=== PATIENT | female | born 1965 | race American Indian/Alaskan Native ===

== ENCOUNTER 2017-01-31 01:58 | Inpatient (IN) | payer OTHER, MEDICAID ==
[2017-01-31 03:17] LABS: Basophils % (Auto) 0.8 % (0.0-1.8); Hematocrit 35.1 % (30.3-42.9); Hemoglobin 11.7 gm/dl (10.1-14.3); Mean Corpuscular HGB Conc 33 % (30-34); Mean Corpuscular Hemoglobin 29 pg (28-32); Mean Corpuscular Volume 88 fl (79-97); Platelet Count 248 K/mm3 (140-440); Red Blood Count 3.99 M/mm3 (3.65-5.03); Red Cell Distribution Width 13.1 % (13.2-15.2); White Blood Count 6.5 K/mm3 (4.5-11.0)
[2017-01-31 03:33] LABS: Anion Gap 24 mmol/L; Blood Urea Nitrogen 14 mg/dL (7-17); Carbon Dioxide 19 mmol/L (22-30); Chloride 95.6 mmol/L (98-107); Glucose 340 mg/dL (65-100); Potassium 3.8 mmol/L (3.6-5.0); Sodium 135 mmol/L (137-145)
--- NOTE | 2017-01-31 06:23 | Emergency Department Report ---
ED Chest Pain HPI - General Chief Complaint: Dyspnea/Respdistress Stated Complaint: CHEST PAIN Time Seen by Provider: 01/31/17 06:22 Source: EMS Mode of arrival: Stretcher Limitations: No Limitations - History of Present Illness Initial Comments: The patient complains of intermittent nonpleuritic chest pain which does not radiate. He states that she was admitted for this before and a CT was done but no stress test. In [address] angiogram. She does have a history of pulmonary embolism in 2000. She states that she sees Dr. Lemons of [facility] for care. However she states that a heart problem has been yet diagnosed. She has multiple cardiac risk factors probably all with the exception of being a nonsmoker. She has never had a heart catheterization. Review of her prior admission does indicate that no stress was performed in 2016. The patient states that she does have associated symptoms with these episodes of chest pain which are poorly characterized otherwise. She answers to the affirmative regarding nausea and sweating and dyspnea. She denies vomiting or hemoptysis. She states that her leg is swollen. However on exam there is no evidence of that and she then states, "it went down". She denies stress or anxiety. MD Complaint: chest pain -: month(s) Onset: during rest Pain Location: left chest Pain Radiation: none Severity scale (0 -10): 10 Quality: other Consistency: intermittent, now resolved Improves With: nothing Worsens With: nothing re: nausea, dyspnea. denies: vomting Other Symptoms: denies: cough, fever, syncope Treatments Prior to Arrival: none Aspirin use within the Past 7 Days: (1) Yes - Related Data On Oral Contraceptives: No Home Medications Medication Instructions Recorded Confirmed Last Taken Metoprolol [Lopressor TAB] 25 mg PO BID 09/02/13 01/31/17 09/05/15 levETIRAcetam [Keppra TAB] 1,500 mg PO BID 09/02/13 01/31/17 09/05/15 Aspirin [Aspirin TAB] 81 mg PO QDAY 09/06/15 01/31/17 09/05/15 Fluticasone [Flonase] 1 spray NS QDAY 09/06/15 01/31/17 09/05/15 Gabapentin [Neurontin] 300 mg PO DAILY 09/06/15 01/31/17 09/05/15 Insulin Lispro [HumaLOG VIAL] 25 units SQ AC 09/06/15 01/31/17 09/05/15 Levothyroxine [Synthroid] 112 mcg PO QAM 09/06/15 01/31/17 09/05/15 Omeprazole [PriLOSEC] 40 mg PO QDAY 09/06/15 01/31/17 09/05/15 PARoxetine [Paxil] 30 mg PO DAILY 09/06/15 01/31/17 09/05/15 Simvastatin [Zocor TAB] 40 mg PO QHS 09/06/15 01/31/17 09/05/15 Insulin Degludec [Tresiba 90 unit SQ DAILY 07/07/16 01/31/17 Unknown Flextouch U-100] Olmesartan/Hydrochlorothiazide 1 tab PO QDAY 07/07/16 01/31/17 Unknown [Benicar HCT 40-25 mg] Symbicort 160-4.5 (Nf) 160 spray IH DAILY 07/07/16 01/31/17 Unknown Previous Rx's Medication Instructions Recorded Last Taken Type Benzonatate [Tessalon Perles] 100 mg PO Q8HR PRN #20 capsule 09/07/15 Unknown Rx Famotidine [Pepcid] 20 mg PO BID #60 tablet 09/07/15 Unknown Rx Meloxicam [Mobic] 7.5 mg PO QDAY #14 tablet 09/07/15 Unknown Rx Allergies Allergy/AdvReac Type Severity Reaction Status Date / Time No Known Allergies Allergy Verified 01/31/17 02:19 Heart Score - HEART Score History: Slightly suspicious EKG: Normal Age: 45-65 Risk factors: > 3 risk factors or hx of atherosclerotic disease Troponin: < normal limit HEART Score: 3 - Critical Actions Critical Actions: 0-3 pts:0.9-1.7%risk of adverse cardiac event.Candidate for discharge ED Review of Systems ROS: Stated complaint: CHEST PAIN Other details as noted in HPI Constitutional: denies: chills, fever Eyes: denies: eye pain, eye discharge, vision change ENT: denies: ear pain, throat pain Respiratory: shortness of breath. denies: cough, wheezing Cardiovascular: chest pain. denies: palpitations Endocrine: no symptoms reported Gastrointestinal: nausea. denies: abdominal pain, vomiting, diarrhea Genitourinary: denies: urgency, dysuria, discharge Musculoskeletal: denies: back pain, joint swelling, arthralgia Skin: denies: rash, lesions Neurological: denies: headache, weakness, paresthesias Psychiatric: denies: anxiety, depression Hematological/Lymphatic: denies: easy bleeding, easy bruising ED Past Medical Hx - Past Medical History Previous Medical History?: Yes Hx Hypertension: Yes Hx Heart Attack/AMI: No Hx Congestive Heart Failure: No Hx Diabetes: Yes Hx Deep Vein Thrombosis: Yes Hx Pulmonary Embolism: Yes (2000) Hx Liver Disease: No Hx Renal Disease: No Hx Sickle Cell Disease: No Hx Arthritis: No Hx Seizures: Yes Hx Kidney Stones: No Hx Asthma: Yes Hx COPD: No Hx Tuberculosis: No Hx Dementia: No Hx HIV: No Additional medical history: MVP. GLAUCOMA. GOUT. ANXIETY - Surgical History Past Surgical History?: Yes Hx Open Heart Surgery: No Hx Pacemaker: No Hx Internal Defibrillator: No Hx Cholecystectomy: No Hx Appendectomy: Yes Hx Breast Surgery: No - Social History Smoking Status: Never Smoker Substance Use Type: None - Medications Home Medications: Home Medications Medication Instructions Recorded Confirmed Last Taken Type Metoprolol [Lopressor TAB] 25 mg PO BID 09/02/13 01/31/17 09/05/15 History levETIRAcetam [Keppra TAB] 1,500 mg PO BID 09/02/13 01/31/17 09/05/15 History Aspirin [Aspirin TAB] 81 mg PO QDAY 09/06/15 01/31/17 09/05/15 History Fluticasone [Flonase] 1 spray NS QDAY 09/06/15 01/31/17 09/05/15 History Gabapentin [Neurontin] 300 mg PO DAILY 09/06/15 01/31/17 09/05/15 History Insulin Lispro [HumaLOG VIAL] 25 units SQ AC 09/06/15 01/31/17 09/05/15 History Levothyroxine [Synthroid] 112 mcg PO QAM 09/06/15 01/31/17 09/05/15 History Omeprazole [PriLOSEC] 40 mg PO QDAY 09/06/15 01/31/17 09/05/15 History PARoxetine [Paxil] 30 mg PO DAILY 09/06/15 01/31/17 09/05/15 History Simvastatin [Zocor TAB] 40 mg PO QHS 09/06/15 01/31/17 09/05/15 History Benzonatate [Tessalon Perles] 100 mg PO Q8HR PRN #20 capsule 09/07/15 01/31/17 Unknown Rx Famotidine [Pepcid] 20 mg PO BID #60 tablet 09/07/15 01/31/17 Unknown Rx Meloxicam [Mobic] 7.5 mg PO QDAY #14 tablet 09/07/15 01/31/17 Unknown Rx Insulin Degludec [Tresiba 90 unit SQ DAILY 07/07/16 01/31/17 Unknown History Flextouch U-100] Olmesartan/Hydrochlorothiazide 1 tab PO QDAY 07/07/16 01/31/17 Unknown History [Benicar HCT 40-25 mg] Symbicort 160-4.5 (Nf) 160 spray IH DAILY 07/07/16 01/31/17 Unknown History ED Physical Exam - General Limitations: No Limitations General appearance: anxious - Head Head exam: Present: atraumatic, normocephalic - Eye Eye exam: Present: normal appearance. Absent: scleral icterus - ENT ENT exam: Present: mucous membranes moist - Neck Neck exam: Present: normal inspection - Respiratory Respiratory exam: Present: normal lung sounds bilaterally. Absent: respiratory distress - Cardiovascular Cardiovascular Exam: Present: regular rate, normal rhythm. Absent: systolic murmur, diastolic murmur, rubs, gallop - GI/Abdominal GI/Abdominal exam: Present: soft, normal bowel sounds. Absent: distended, tenderness, guarding, rebound, rigid - Extremities Exam Extremities exam: Present: normal inspection, normal capillary refill. Absent: tenderness, pedal edema, joint swelling, calf tenderness - Back Exam Back exam: Present: normal inspection - Neurological Exam Neurological exam: Present: alert, oriented X3, CN II-XII intact. Absent: motor sensory deficit - Psychiatric Psychiatric exam: Present: normal affect, anxious (appears anxious despite denying this) - Skin Skin exam: Present: warm, dry, intact, normal color. Absent: rash ED Course Vital Signs 01/31/17 01/31/17 01/31/17 02:22 02:30 02:39 Temperature 98 F Pulse Rate 71 67 70 Respiratory 29 H 25 H 25 H Rate Blood Pressure 145/72 Blood Pressure 151/72 [Right] O2 Sat by Pulse 100 100 100 Oximetry 01/31/17 01/31/17 01/31/17 02:45 03:00 03:15 Temperature Pulse Rate 81 67 72 Respiratory 19 31 H 17 Rate Blood Pressure 145/72 153/80 153/80 Blood Pressure [Right] O2 Sat by Pulse 99 98 100 Oximetry 01/31/17 01/31/17 01/31/17 03:30 03:45 04:00 Temperature Pulse Rate 68 67 68 Respiratory 18 23 22 Rate Blood Pressure 143/78 143/78 147/73 Blood Pressure [Right] O2 Sat by Pulse 100 100 99 Oximetry 01/31/17 01/31/17 01/31/17 04:15 04:30 04:45 Temperature Pulse Rate 74 70 67 Respiratory 18 14 22 Rate Blood Pressure 147/73 134/66 134/66 Blood Pressure [Right] O2 Sat by Pulse 100 98 100 Oximetry 01/31/17 01/31/17 01/31/17 05:00 05:30 06:00 Temperature Pulse Rate 65 66 66 Respiratory 18 19 21 Rate Blood Pressure 138/78 136/68 148/81 Blood Pressure [Right] O2 Sat by Pulse 99 97 99 Oximetry 01/31/17 01/31/17 06:30 07:00 Temperature Pulse Rate 68 64 Respiratory 15 15 Rate Blood Pressure 133/77 133/72 Blood Pressure [Right] O2 Sat by Pulse 100 98 Oximetry - Reevaluation(s) Reevaluation #1: The patient admitted by Dr. Hackett to the hospitalist service for further care and evaluation in stable condition 01/31/17 08:26 QUE score - Que Score Age > 65: (0) No Aspirin use within the Past 7 Days: (1) Yes 3 or more CAD Risk Factors: (1) Yes 2 or more Angina events in past 24 hrs: (1) Yes Known CAD with more than 50% Stenosis: (0) No Elevated Cardiac Markers: (0) No ST Deviation Greater than 0.5mm: (0) No QUE Score: 3 ED Medical Decision Making - Lab Data Result diagrams: 01/31/17 02:58 01/31/17 02:58 Laboratory Results - last 24 hr 01/31/17 01/31/17 02:58 02:58 WBC 6.5 RBC 3.99 Hgb 11.7 Hct 35.1 MCV 88 MCH 29 MCHC 33 RDW 13.1 L Plt Count 248 Lymph % (Auto) 19.6 Harnett % (Auto) 6.1 Eos % (Auto) 1.0 Baso % (Auto) 0.8 Lymph # 1.3 Harnett # 0.4 Eos # 0.1 Baso # 0.1 Seg Neutrophils % 72.5 H Seg Neutrophils # 4.7 Sodium 135 L Potassium 3.8 Chloride 95.6 L Carbon Dioxide 19 L Anion Gap 24 BUN 14 Creatinine 0.8 Estimated GFR > 60 BUN/Creatinine Ratio 17.50 Glucose 340 H Calcium 9.0 Troponin T < 0.010 - EKG Data -: EKG Interpreted by Me EKG shows normal: sinus rhythm, axis, intervals, QRS complexes, ST-T waves Rate: normal - EKG Data Interpretation: other (I disagree with the computer interpretation of cannot rule out anterior infarct. This is probably decreased R wave progression secondary to body habitus. It is nondiagnostic of an old infarct) - Radiology Data Radiology results: pending Critical care attestation.: If time is entered above; I have spent that time in minutes in the direct care of this critically ill patient, excluding procedure time. ED Disposition Clinical Impression: Chest pain Qualifiers: Chest pain type: unspecified Qualified Code(s): R07.9 - Chest pain, unspecified Diabetes mellitus, type 2 Qualifiers: Diabetes mellitus complication status: without complication Diabetes mellitus buttermilk drier operator insulin use: with buttermilk drier operator use Qualified Code(s): E11.9 - Type 2 diabetes mellitus without complications; Z79.4 - half-way (current) use of insulin Disposition: 09 OP ADMIT IP TO THIS HOSP Is pt being admited?: Yes Does the pt Need Aspirin: Yes Condition: Stable Instructions: Chest Pain (ED), Diabetes Mellitus Type 2 in Adults (ED) Referrals: PRIMARY CARE, [Primary Care Provider] - 3-5 Days Time of Disposition: 08:29
[2017-01-31] MEDS ORDERED: BABY ASPIRIN PO ONE (08:30)
[2017-01-31] MEDS ORDERED: TESSALON PERLES PO PRN (08:40)
--- NOTE | 2017-01-31 08:49 | History and Physical Report ---
History of Present Illness Date of examination: 01/31/17 Date of admission: 01/31/17 Chief complaint: Chest pain History of present illness: The patient is a 51 y/o female presented with nonpleuritic chest pain located retrosternally, without radiation, associated with nausea and diaphoresis for one week but just got worse since last night. She denies any SOB. Her pain is sharp in nature, 8/10 in intensity. She had a 2d echo early this year showing EF of 60-65%. Stress test was obtained on 2015 was normal. Her troponine so far negative with nonspecific T wave changes. She will be admitted for further evaluation. Past medical History: h/o HTN, HLD, seizure disorder, hypothyroidism, Past surgical History: s/p appendectomy Social History: Lives with family, denies any smoking, drinking and elicit drug abuse. Family History: Significant for heart disease in parents. Review of System: Constitutional: no fever, no chills, no weight loss Ears, eyes, nose, mouth and throat: no nasal congestion, no nasal discharge, no sinus pressure, no vision change, no red eye. Neck: No neck pain or rigidity. Cardiovascular: + chest pain, no orthopnea, no palpitations, no leg swelling Respiratory: No shortness of breath, no cough, no congestion, no wheezing Gastrointestinal: no abdominal pain, no nausea, no vomiting Genitourinary : no dysuria, no hematuria Musculoskeletal: no joint swelling or muscle ache Integumentary: no rash, no pruritis Neurological: no parathesias, no numbness, no tingling Endocrine: no cold or heat intolerance, no polyuria or polydipsia Hematologic/Lymphatic: no easy bruising, no easy bleeding, no gland swelling Allergic/Immunologic: no urticaria, no angioedema. Medications and Allergies Allergies Allergy/AdvReac Type Severity Reaction Status Date / Time No Known Allergies Allergy Verified 01/31/17 02:19 Home Medications Medication Instructions Recorded Confirmed Last Taken Type Metoprolol [Lopressor TAB] 25 mg PO BID 09/02/13 01/31/17 09/05/15 History levETIRAcetam [Keppra TAB] 1,500 mg PO BID 09/02/13 01/31/17 09/05/15 History Aspirin [Aspirin TAB] 81 mg PO QDAY 09/06/15 01/31/17 09/05/15 History Fluticasone [Flonase] 1 spray NS QDAY 09/06/15 01/31/17 09/05/15 History Gabapentin [Neurontin] 300 mg PO DAILY 09/06/15 01/31/17 09/05/15 History Insulin Lispro [HumaLOG VIAL] 25 units SQ AC 09/06/15 01/31/17 09/05/15 History Levothyroxine [Synthroid] 112 mcg PO QAM 09/06/15 01/31/17 09/05/15 History Omeprazole [PriLOSEC] 40 mg PO QDAY 09/06/15 01/31/17 09/05/15 History PARoxetine [Paxil] 30 mg PO DAILY 09/06/15 01/31/17 09/05/15 History Simvastatin [Zocor TAB] 40 mg PO QHS 09/06/15 01/31/17 09/05/15 History Benzonatate [Tessalon Perles] 100 mg PO Q8HR PRN #20 capsule 09/07/15 01/31/17 Unknown Rx Famotidine [Pepcid] 20 mg PO BID #60 tablet 09/07/15 01/31/17 Unknown Rx Meloxicam [Mobic] 7.5 mg PO QDAY #14 tablet 09/07/15 01/31/17 Unknown Rx Insulin Degludec [Tresiba 90 unit SQ DAILY 07/07/16 01/31/17 Unknown History Flextouch U-100] Olmesartan/Hydrochlorothiazide 1 tab PO QDAY 07/07/16 01/31/17 Unknown History [Benicar HCT 40-25 mg] Symbicort 160-4.5 (Nf) 160 spray IH DAILY 07/07/16 01/31/17 Unknown History Active Meds: Active Medications Aspirin (Aspirin) 81 mg PO QDAY KRISH Benzonatate (Tessalon Perles) 100 mg PO Q8HR PRN PRN Reason: Cough Famotidine (Pepcid) 20 mg PO BID KRISH Fluticasone Propionate (Flonase) mcg NS QDAY KRISH Gabapentin (Neurontin) 300 mg PO DAILY KRISH Levothyroxine Sodium (Synthroid) 112 mcg PO QAM KRISH Metoprolol Tartrate (Lopressor) 25 mg PO BID KRISH Miscellaneous Medication (Insulin Degludec [Tresiba Flextouch U-100]) 90 unit SQ DAILY KRISH Miscellaneous Medication (Insulin Lispro [Humalog Vial]) 25 units SQ AC KRISH Miscellaneous Medication (Levetiracetam [Keppra Tab]) 1,500 mg PO BID KRISH Miscellaneous Medication (Olmesartan/Hydrochlorothiazide [Benicar Hct 40-25 Mg] ) 1 tab PO QDAY KRISH Miscellaneous Medication (Omeprazole [Prilosec]) 40 mg PO QDAY KRISH Miscellaneous Medication (Symbicort 160-4.5 (Nf)) 160 spray IH DAILY KRISH Paroxetine HCl (Paxil) 30 mg PO DAILY KRISH Simvastatin (Zocor) 40 mg PO QHS KRISH Exam - Physical Exam Narrative exam: GENERAL: This is well-developed obese -Cypriot female lying on bed appeared to be in no discomfort. HEENT: Normocephalic. Atraumatic. Extraocular motions are intact. No conjunctival congestion or icterus. Patient has moist mucous membranes. External auditory canal and nares patent bilaterally. NECK: Supple. Trachea midline. No JVD, thyromagaly or lymphadenopathy. CHEST/LUNGS: Clear to auscultated bilaterally. There is no respiratory distress noted, breathing nonlabored. No wheezes crackles or rhonchi. HEART/CARDIOVASCULAR: Regular in rate and rhythm. PMI at the apex. There is no gallop rub or murmur. ABDOMEN: Abdomen is soft, nontender. Patient has normal bowel sounds. There is no abdominal distention. No organomagaly or rigidity. SKIN: There is no rash, no erythrema. There is no diaphoresis. Warm and dry. NEUROLOGY: The patient is awake, alert, and oriented. The patient is cooperative. The patient has normal speech. No focal motor deficit. MUSCULOSKELETAL: No joint effusion or tenderness. Muscle strength equal bilaterally. No muscle wasting. EXTRIMITY: No edema, cyanosis or clubbing. PSYCH: No depression or anxiety noted. Cooperative. - Constitutional Vitals: Temp Pulse Resp BP Pulse Ox 98 F 64 10 L 135/71 99 01/31/17 02:39 01/31/17 07:00 01/31/17 08:00 01/31/17 08:00 01/31/17 08:00 Results - Labs CBC & Chem 7: 01/31/17 02:58 01/31/17 02:58 Labs: Abnormal lab results 01/31/17 01/31/17 Range/Units 02:58 02:58 RDW 13.1 L (13.2-15.2) % Seg Neutrophils % 72.5 H (40.0-70.0) % Sodium 135 L (137-145) mmol/L Chloride 95.6 L (98-107) mmol/L Carbon Dioxide 19 L (22-30) mmol/L Glucose 340 H (65-100) mg/dL - Imaging and Cardiology Chest x-ray: report reviewed Assessment and Plan Acute chest pain - will admit to telemetry bed - monitor with serial CE and EKG - will place on Aspirin, statin - as needed SL NTG and iv morphin for pain - order stress test in the am - Patient had a recent echo on July this year which showed normal ejection fraction - cardiac diet now, NPO after midnight - provide DVT Px with lovenox Hypertension - Monitor BP, continue home meds Diabetes mellitus type 2 - Continue home regimen of insulin Hypothyroidism - Continue Synthroid - We will check TSH level Seizure disorder - Continue Keppra DVT prophylaxis - Lovenox
--- NOTE | 2017-01-31 09:54 | XRay Report ---
AP CHEST: HISTORY: Hypertension AP view of the chest demonstrates a normal mediastinal and cardiac contour with clear lungs and normal bony and soft tissue structures. IMPRESSION: Unremarkable AP chest.
[2017-01-31] MEDS ORDERED: NON-FORMULARY (Levetiracetam [Keppra Tab] 1,500 MG) PO SCH (10:00)
[2017-01-31] MEDS ORDERED: SYMBICORT IH SCH (10:00)
[2017-01-31] MEDS ORDERED: NON-FORMULARY (Omeprazole [Prilosec] 40 MG) PO SCH (10:00)
[2017-01-31] MEDS ORDERED: LEVEMIR SUB-Q SCH ×2 (10:00→16:17)
[2017-01-31] MEDS ORDERED: FLONASE NS SCH (10:00)
[2017-01-31] MEDS ORDERED: SYNTHROID PO SCH (10:00)
[2017-01-31] MEDS ORDERED: OLMESARTAN PO SCH (10:00)
[2017-01-31] MEDS ORDERED: INSULIN DEGLUDEC 90 UNIT SQ SCH (10:00)
[2017-01-31] MEDS ORDERED: HYDROCHLOROTHIAZIDE PO SCH (10:00)
[2017-01-31] MEDS: ASPIRIN PO SCH (10:22)
[2017-01-31] MEDS ORDERED: INSULIN LISPRO 25 UNIT SQ SCH (11:30)
[2017-01-31] MEDS: LOPRESSOR PO SCH ×2 (12:00→21:48)
[2017-01-31] MEDS: COZAAR PO SCH (12:00)
[2017-01-31] MEDS: KEPPRA PO SCH ×2 (12:00→21:47)
[2017-01-31] MEDS: PEPCID PO SCH ×2 (12:00→21:47)
[2017-01-31] MEDS: HCTZ PO SCH (12:00)
[2017-01-31] MEDS: NEURONTIN PO SCH (12:00)
[2017-01-31] MEDS: PROTONIX PO SCH (12:00)
[2017-01-31] MEDS: NOVOLOG SUB-Q SCH ×2 (13:30→19:00)
[2017-01-31] MEDS: PAXIL PO SCH (15:43)
[2017-01-31] MEDS: SYNTHROID PO SCH (15:43)
[2017-01-31] MEDS ORDERED: ZOCOR PO SCH (22:00)
--- NOTE | 2017-02-01 02:51 | Admit Criteria Form ---
Admission Criteria Documentation: CARDIOLOGY GRG Clinical Indications for Admission to Inpatient Care ( Place 'X' for any and all applicable criteria): Hospital admission is needed for appropriate care of the patient because of ANY ONE of the following (1): [ ] I. Hemodynamic instability as indicated by ALL of the following (1)(2)(3) (4)(5) [ ]a) Vital signs or other findings not as expected for chronic patient condition or baseline [ ]b) Instability indicated by ANY ONE of the following: [ ]i) Hypotension [ ]ii) Symptomatic Tachycardia unresponsive to treatment ( e.g., analgesia, fluids, sedation as indicated) [ ]iii) Inadequate perfusion indicated by ANY ONE of the following: [ ] 1) Lactic acidosis (> 2 mmol/L) [ ] 2) New abnormal capillary refill (> 3 seconds) [ ] 3) Reduced urine output [ ] 4) New altered mental status [ ]iv) Orthostatic vital sign changes unresponsive to treatment (e.g., fluids) [ ]v) IV inotropic or vasopressor medication required to maintain adequate blood pressure or perfusion [ ] II. Severe heart failure as indicated by ANY ONE of the following(17)(18) [ ]a) Respiratory distress [ ]b) Hypotension [ ]c) Anasarca (refractory to outpatient therapy) [ ]d) Cardiac arrhythmias of immediate concern [ ]e) Myocardial ischemia [ ] III. Cardiac arrhythmias or findings of immediate concern indicated by ANY ONE of the following (19)(20): [ ] a) Heart rhythms that are inherently dangerous or unstable indicated by ANY ONE of the following (21)(22)(23): [ ] i) Resuscitated ventricular fibrillation or cardiac arrest [ ] ii) Ventricular escape rhythm [ ] iii) Sustained ventricular tachycardia (30 seconds or more of ventricular rhythm at greater than 100 beats per minute) [ ] iv) Nonsustained ventricular tachycardia and ANY ONE of the following: [ ] 1) Suspected cardiac ischemia as cause or consequence of ventricular tachycardia [ ] 2) In setting of acute myocarditis [ ] b) Unstable cardiac conduction defects indicated by ANY ONE of the following(23)(24)(25) [ ] i) Type II second-degree atrioventricular block [ ]ii) Third-degree atrioventricular block [ ]iii) New-onset left bundle branch block with suspected myocardial ischemia [ ]c) Any heart rhythm and ANY ONE of the following (21)(22)(26)(27) (28) [ ] i) Continuous long-term ECG monitoring needed (e.g., initiation of drug requiring monitoring for more than 24 hours) [ ] ii) Patient has automatic implanted cardioverter defibrillator that is repeatedly firing, malfunctioning, or in need of immediate adjustment of settings beyond the scope of ambulatory or observation care [ ]d) Heart rhythms of concern due to ANY ONE of the following: [ ] i) Hypotension [ ] ii) Respiratory distress [ ] iii) Association with other significant symptoms (e.g., bradycardia with syncope or ongoing dizziness, supraventricular tachycardia with chest pain (14)(15)(17) [ ] IV. Monitoring for cardiac contusion beyond the scope of observation care needed [A](30)(31)(32) [ ] V. Surgical or device complication (e.g., valve replacement complication , pacemaker dysfunction) (35)(41)(44)(45)(46) [ ] . Inpatient palliative care needed. [B](49) Also use Inpatient Palliative Care Criteria [ ] VII. Nonbacterial thrombotic (marantic) endocarditis (36)(43)(47)(48) [ X] VIII. Cardiology condition, symptom, or finding for which emergency and observation care has failed or are not considered appropriate. [ ] IX. Acute valvular disease requiring inpatient as indicated by ANY ONE of the following (41) [ ]a) Acute valvular regurgitation (42) [ ]b) Noninfectious valvulitis (43) [ ]c) Obstructive valve thrombosis [ ]d) Paravalvular leak [ ]e) Other significant valvular disorder remaining after emergency or observation level of care (as appropriate) [ ]X. Pericardial disease requiring inpatient treatment as indicated by ANY ONE of the following (33)(34)(35)(36)(37) [ ]a) Suspected tamponade (38)(39)(40) [ ]b) Hemopericardium [ ]c) Other significant pericardial disorder remaining after emergency or observation level of care (as appropriate) [ ] XI. Cardiac ischemia beyond scope of emergency and observation care. [ ] XII. Hypertension requiring inpatient treatment as indicated by ANY ONE of the following (6)(7)(8) [ ]a) SBP greater than 220 mm Hg or DBP greater than 120 mmHg despite treatment [ ]b) SBP greater than 140 mm Hg or DBP greater than 100 mm Hg with evidence of acute end organ damage as indicated by ANY ONE of the following [ ] i) Altered mental status [ ] ii) Acute renal failure as indicated by new onset of ANY ONE of the following (9)(10)(11)(12)(13) [ ]1) 3-fold rise in serum creatinine from baseline [ ]2) Serum creatinine greater than 4 mg/dL ( 354 micromoles/L) with acute rise greater than 0.5 mg/dL (44.2 micromoles/L) [ ]3) Reduction of more than 75% in estimated glomerular filtration rate from baseline [ ]4) Estimated glomerular filtration rate less than 35 mL/min/1.73m2 (0.59 mL/sec/1.73m2) in child up to 18 years of age [ ]5) Cessation of urine output indicated by ALL of the following [ ]A. Adequate volume status [ ]B. Inadequate urine output as indicated by ANY ONE of the following [ ]a. Urine output less than 0.3 mL/kg/hr for 24 hours [ ]b. Anuria (urine output less than 0.1 mL/kg/hr) for 12 hours [ ] iii) Aortic dissection [ ] iv) Myocardial Ischemia [ ] v) Left ventricular heart failure [ ]vi) Retinal Hemorrhage [ ]vii) Other significant finding [ ]c) Hypertension in child requiring inpatient treatment as indicated by ALL of the following(14)(15)(16) [ ] i) Outpatient treatment not effective, not available, or not appropriate [ ]ii) SBP or DBP greater than 95th percentile for age [ ]iii) Evidence of acute end organ damage as indicated by ANY ONE of the following [ ]1) Altered mental status [ ]2) Acute renal failure as indicated by new onset of ANY ONE of the following(9)(10)(11)(12)(13) [ ]A. 3-fold rise in serum creatinine from baseline [ ]B. Serum creatinine greater than 4 mg/dL (354 micromoles/L) with acute rise greater than 0.5 mg/dL (44.2 micromoles/L) [ ]C. Reduction of more than 75% in estimated glomerular filtration rate from baseline [ ]D. Estimated glomerular filtration rate less than 35 mL/min/1.73m2 (0.59 mL/sec/1.73m2) in child up to 18 years of age [ ]E. Cessation of urine output indicated by ALL of the following [ ]a. Adequate volume status [ ]b. Inadequate urine output as indicated by ANY ONE of the following [ ]i) Urine output less than 0.3 mL/kg/hr for 24 hours [ ]ii) Anuria ( urine output less than 0.1 mL/kg/hr) for 12 hours [ ]3) Severe headache [ ]4) Visual disturbance [ ]5) Retinal hemorrhage [ ]6) Other significant finding [ ]XIII. Complications of transplanted heart indicated by ANY ONE of the following(61): [ ]a) Acute graft rejection requiring inpatient management (eg, intravenous immunosuppression)(62)(63) [ ]b) Acute graft heart failure indicated by ANY ONE of the following(64): [ ]i) Hemodynamic instability [ ]ii) Cardiac arrhythmias of immediate concern [ ]iii) Pulmonary edema that is very severe (eg, mechanical ventilation needed, imminent or likely, need for 100% oxygen to keep oxygen saturation above 90%) [ ]iv) Pulmonary edema that is persistent as indicated by ALL of the following: [ ]1) New need for oxygen therapy to keep oxygen saturation above 90% (or increased FiO2 need from baseline) [ ]2) Has not improved sufficiently with emergency department or observation care IV diuretics or other heart failure treatments[E] [ ]v) Altered mental status that is severe or persistent [ ]vi) Increased creatinine (new on laboratory test) with reduction of more than 50% in estimated glomerular filtration rate from baseline [ ]vii) Progressively (ongoing) rising creatinine (known from past laboratory test) with reduction of more than 25% in estimated glomerular filtration rate from baseline [ ]viii) Acute renal failure [ ]ix) Acute peripheral ischemia (eg, examination shows pulseless, cool, mottled, or cyanotic extremity) [ ]x) Pulmonary artery catheter monitoring needed [ ]xi) Other sign or symptom of heart failure requiring inpatient treatment (ie, too severe or not responsive to outpatient and observation care treatment) [ ]c) Infection requiring inpatient management (eg, Hemodynamic instability, need for intravenous antimicrobial treatment)(66)(67)(68)(69)(70) [ ]d) Cardiac allograft vasculopathy requiring inpatient management ( eg evidence of cardiac ischemia)(71) [ ]e) Other complication of transplanted heart (eg, stroke, severe pulmonary hypertension, severe valvular dysfunction) requiring inpatient management(72) The original [facility] [employer] content created by [facility] has been revised. The portions of the content which have been revised are identified through the use of italic text or in bold, and [facility] has neither reviewed nor approved the modified material. All other unmodified content is copyright [facility] [employer]. Please see references footnoted in the original [facility] [employer] edition 2016 Admission Criteria Met: Yes
[2017-02-01] MEDS: SYNTHROID PO SCH (06:22)
[2017-02-01] MEDS ORDERED: LEXISCAN IV ONE (08:01)
[2017-02-01] MEDS: KEPPRA PO SCH (12:46)
[2017-02-01] MEDS: NEURONTIN PO SCH (12:46)
[2017-02-01] MEDS: COZAAR PO SCH (12:48)
[2017-02-01] MEDS: ASPIRIN PO SCH (12:48)
[2017-02-01] MEDS: HCTZ PO SCH (12:49)
[2017-02-01] MEDS: PROTONIX PO SCH (12:49)
[2017-02-01] MEDS: PEPCID PO SCH (12:49)
[2017-02-01] MEDS: PAXIL PO SCH (12:50)
[2017-02-01] MEDS: LOPRESSOR PO SCH (12:50)
--- NOTE | 2017-02-01 13:35 | Discharge Summary ---
Providers - Providers Date of Admission: 01/31/17 11:32 Date of discharge: 02/01/17 Attending physician: ISAURO BASURTO MD Primary care physician: DARIUS CARRINGTON MD Hospitalization Condition: Stable Hospital course: discharge diagnosis: Acute chest pain likely from GERD Hypertension - Monitor BP, continue home meds Diabetes mellitus type 2 - Continue home regimen of insulin Hypothyroidism - Continue Synthroid - We will check TSH level Seizure disorder - Continue Keppra Disposition: DC-01 TO HOME OR SELFCARE Time spent for discharge: 32 minutes Core Measure Documentation - Palliative Care Palliative Care/ Comfort Measures: Not Applicable - Core Measures Any of the following diagnoses?: none Exam - Physical Exam Narrative exam: GENERAL: This is well-developed obese -[place] female lying on bed appeared to be in no discomfort. HEENT: Normocephalic. Atraumatic. Extraocular motions are intact. No conjunctival congestion or icterus. Patient has moist mucous membranes. External auditory canal and nares patent bilaterally. NECK: Supple. Trachea midline. No JVD, thyromagaly or lymphadenopathy. CHEST/LUNGS: Clear to auscultated bilaterally. There is no respiratory distress noted, breathing nonlabored. No wheezes crackles or rhonchi. HEART/CARDIOVASCULAR: Regular in rate and rhythm. PMI at the apex. There is no gallop rub or murmur. ABDOMEN: Abdomen is soft, nontender. Patient has normal bowel sounds. There is no abdominal distention. No organomagaly or rigidity. SKIN: There is no rash, no erythrema. There is no diaphoresis. Warm and dry. NEUROLOGY: The patient is awake, alert, and oriented. The patient is cooperative. The patient has normal speech. No focal motor deficit. MUSCULOSKELETAL: No joint effusion or tenderness. Muscle strength equal bilaterally. No muscle wasting. EXTRIMITY: No edema, cyanosis or clubbing. PSYCH: No depression or anxiety noted. Cooperative. - Constitutional Vitals: Temp Pulse Resp BP Pulse Ox 99.0 F 65 18 109/58 97 02/01/17 12:25 02/01/17 12:25 02/01/17 12:25 02/01/17 12:25 02/01/17 12:25 Plan Activity: advance as tolerated Weight Bearing Status: Weight Bear as Tolerated Diet: diabetic Follow up with: PRIMARY MD CHARISSA [Primary Care Provider] - 3-5 Days Prescriptions: Pantoprazole [Protonix TAB] 40 mg PO DAILY #30 tablet
[2017-02-01] MEDS ORDERED: TYLENOL PO PRN (14:01)
[2017-02-01] MEDS ORDERED: NORCO 5/325 PO PRN (14:01)
[2017-02-01] MEDS: BROVANA NEBU IH SCH ×4 (14:27→20:29)
[2017-02-01] MEDS: PULMICORT IH SCH ×4 (14:31→20:29)
[2017-02-01 21:20] VITALS: BP 123/75
--- NOTE | 2017-02-02 04:50 | Treadmill Report ---
THALLIUM STRESS TEST LEFT VENTRICLE: Left ventricular chamber size is within normal limits. Perfusion study demonstrates normal apical thinning, otherwise homogeneous uptake of the tracer in all segments, no significant perfusion defects identified. Gated analysis demonstrates normal left ventricular systolic function, ejection fraction of 68%. CONCLUSION: Normal myocardial perfusion study. JOB# [id number] CA/NTS
== END 2017-02-01 20:20 | disposition home or self-care (01) | DRG 392 ==
LOC: ED 01:58 → 4A 11:32
PROVIDERS: ADMIT Internal Medicine; ATTEND Internal Medicine
DX: K21.9 Gastro-esophageal reflux disease without esophagitis (principal); E11.9 Type 2 diabetes mellitus without complications; I10 Essential (primary) hypertension; J45.909 Unspecified asthma, uncomplicated; H40.9 Unspecified glaucoma; M10.9 Gout, unspecified; F41.9 Anxiety disorder, unspecified; G40.909 Epilepsy, unspecified, not intractable, without status epilepticus; E03.9 Hypothyroidism, unspecified; E78.5 Hyperlipidemia, unspecified; Z90.49 Acquired absence of other specified parts of digestive tract; Z86.711 Personal history of pulmonary embolism; Z79.01 Long term (current) use of anticoagulants; Z79.82 Long term (current) use of aspirin; Z79.4 Long term (current) use of insulin; Z86.718 Personal history of other venous thrombosis and embolism; Z82.49 Family history of ischemic heart disease and other diseases of the circulatory system
CPT/HCPCS: 36415; 71010; 78452; 80048; 82962; 84484; 85025; 93005; 93010; 93017; A9502; J1815; J1818; J2785

== ENCOUNTER 2018-01-09 03:28 | Observation (INO) | payer MEDICAID, OTHER ==
[2018-01-09] MEDS ORDERED: MORPHINE IV ONE ×2 (04:04→22:40)
[2018-01-09] MEDS ORDERED: NITRO-BID 2% TP ONE (04:15)
[2018-01-09] MEDS ORDERED: ZOFRAN IV ONE (04:15)
--- NOTE | 2018-01-09 04:19 | XRay Report ---
FINAL REPORT EXAM: XR CHEST 1V AP HISTORY: Chest Pain TECHNIQUE: A portable upright view the chest was obtained and compared to the study of 09/06/2015. FINDINGS: Heart size and mediastinum appear normal. There are no localized infiltrates. The lungs are not overtly congested. Pleural fluid is not seen. The bones and soft tissues do not show any acute changes. IMPRESSION: No active chest disease.
--- NOTE | 2018-01-09 04:33 | Emergency Department Report ---
ED Chest Pain HPI - General Chief Complaint: Chest Pain Stated Complaint: CHEST PAIN Time Seen by Provider: 01/09/18 03:49 Source: patient Mode of arrival: Ambulatory Limitations: No Limitations - History of Present Illness Initial Comments: Mrs. Okeefe has hx of UT, CVA, HTN, DM and dysplipidemia. No hx of PCI. Last cardiac cath ?2004 ?2005 Followed by Sindy Lerner MD Complaint: chest pain -: Gradual, week(s) (2) Onset: during rest Pain Location: substernal, left chest Pain Radiation: LUE Severity: severe Severity scale (0 -10): 8 Quality: tightness, sharp Consistency: constant Improves With: nitroglycerin Treatments Prior to Arrival: aspirin, nitroglycerin - Related Data Home Medications Medication Instructions Recorded Confirmed Last Taken Metoprolol [Lopressor TAB] 25 mg PO BID 09/02/13 01/31/17 09/05/15 levETIRAcetam [Keppra TAB] 1,500 mg PO BID 09/02/13 01/31/17 09/05/15 Aspirin [Aspirin TAB] 81 mg PO QDAY 09/06/15 01/31/17 09/05/15 Fluticasone [Flonase] 1 spray NS QDAY 09/06/15 01/31/17 09/05/15 Gabapentin [Neurontin] 300 mg PO DAILY 09/06/15 01/31/17 09/05/15 Insulin Lispro [HumaLOG VIAL] 25 units SQ AC 09/06/15 01/31/17 09/05/15 Levothyroxine [Synthroid] 112 mcg PO QAM 09/06/15 01/31/17 09/05/15 Omeprazole [PriLOSEC] 40 mg PO QDAY 09/06/15 01/31/17 09/05/15 PARoxetine [Paxil] 30 mg PO DAILY 09/06/15 01/31/17 09/05/15 Simvastatin [Zocor TAB] 40 mg PO QHS 09/06/15 01/31/17 09/05/15 Insulin Degludec [Tresiba 90 unit SQ DAILY 07/07/16 01/31/17 Unknown Flextouch U-100] Olmesartan/Hydrochlorothiazide 1 tab PO QDAY 07/07/16 01/31/17 Unknown [Benicar HCT 40-25 mg] Symbicort 160-4.5 (Nf) 160 spray IH DAILY 07/07/16 01/31/17 Unknown Previous Rx's Medication Instructions Recorded Last Taken Type Benzonatate [Tessalon Perles] 100 mg PO Q8HR PRN #20 capsule 09/07/15 Unknown Rx Famotidine [Pepcid] 20 mg PO BID #60 tablet 09/07/15 Unknown Rx Meloxicam [Mobic] 7.5 mg PO QDAY #14 tablet 09/07/15 Unknown Rx Pantoprazole [Protonix TAB] 40 mg PO DAILY #30 tablet 02/01/17 Unknown Rx Allergies Allergy/AdvReac Type Severity Reaction Status Date / Time No Known Allergies Allergy Verified 01/31/17 02:19 Heart Score - HEART Score History: Moderately suspicious EKG: Non-specific Age: 45-65 Risk factors: > 3 risk factors or hx of atherosclerotic disease Troponin: < normal limit HEART Score: 5 ED Review of Systems ROS: Stated complaint: CHEST PAIN Other details as noted in HPI Comment: All other systems reviewed and negative Constitutional: denies: chills, fever Eyes: denies: eye pain, eye discharge, vision change ENT: denies: ear pain, throat pain Respiratory: denies: cough, shortness of breath, wheezing Cardiovascular: denies: chest pain, palpitations Endocrine: no symptoms reported Gastrointestinal: denies: abdominal pain, nausea, diarrhea Musculoskeletal: back pain Neurological: paresthesias ED Past Medical Hx - Past Medical History Hx Hypertension: Yes Hx Heart Attack/AMI: No Hx Congestive Heart Failure: No Hx Diabetes: Yes Hx Deep Vein Thrombosis: Yes Hx Pulmonary Embolism: Yes (2000) Hx Liver Disease: No Hx Renal Disease: No Hx Sickle Cell Disease: No Hx Arthritis: No Hx Seizures: Yes Hx Kidney Stones: No Hx Asthma: Yes Hx COPD: No Hx Tuberculosis: No Hx Dementia: No Hx HIV: No Additional medical history: MVP. GLAUCOMA. GOUT. ANXIETY - Surgical History Hx Open Heart Surgery: No Hx Pacemaker: No Hx Internal Defibrillator: No Hx Cholecystectomy: No Hx Appendectomy: Yes Hx Breast Surgery: No - Social History Smoking Status: Never Smoker Substance Use Type: None - Medications Home Medications: Home Medications Medication Instructions Recorded Confirmed Last Taken Type Metoprolol [Lopressor TAB] 25 mg PO BID 09/02/13 01/31/17 09/05/15 History levETIRAcetam [Keppra TAB] 1,500 mg PO BID 09/02/13 01/31/17 09/05/15 History Aspirin [Aspirin TAB] 81 mg PO QDAY 09/06/15 01/31/17 09/05/15 History Fluticasone [Flonase] 1 spray NS QDAY 09/06/15 01/31/17 09/05/15 History Gabapentin [Neurontin] 300 mg PO DAILY 09/06/15 01/31/17 09/05/15 History Insulin Lispro [HumaLOG VIAL] 25 units SQ AC 09/06/15 01/31/17 09/05/15 History Levothyroxine [Synthroid] 112 mcg PO QAM 09/06/15 01/31/17 09/05/15 History Omeprazole [PriLOSEC] 40 mg PO QDAY 09/06/15 01/31/17 09/05/15 History PARoxetine [Paxil] 30 mg PO DAILY 09/06/15 01/31/17 09/05/15 History Simvastatin [Zocor TAB] 40 mg PO QHS 09/06/15 01/31/17 09/05/15 History Benzonatate [Tessalon Perles] 100 mg PO Q8HR PRN #20 capsule 09/07/15 01/31/17 Unknown Rx Famotidine [Pepcid] 20 mg PO BID #60 tablet 09/07/15 01/31/17 Unknown Rx Meloxicam [Mobic] 7.5 mg PO QDAY #14 tablet 09/07/15 01/31/17 Unknown Rx Insulin Degludec [Tresiba 90 unit SQ DAILY 07/07/16 01/31/17 Unknown History Flextouch U-100] Olmesartan/Hydrochlorothiazide 1 tab PO QDAY 07/07/16 01/31/17 Unknown History [Benicar HCT 40-25 mg] Symbicort 160-4.5 (Nf) 160 spray IH DAILY 07/07/16 01/31/17 Unknown History Pantoprazole [Protonix TAB] 40 mg PO DAILY #30 tablet 02/01/17 Unknown Rx ED Physical Exam - General Limitations: No Limitations General appearance: alert, in no apparent distress - Head Head exam: Present: atraumatic, normocephalic - Eye Eye exam: Present: normal appearance. Absent: scleral icterus, conjunctival injection - ENT ENT exam: Present: mucous membranes moist - Neck Neck exam: Present: normal inspection. Absent: tenderness, meningismus - Respiratory Respiratory exam: Present: normal lung sounds bilaterally. Absent: respiratory distress, wheezes, rales, rhonchi - Cardiovascular Cardiovascular Exam: Present: regular rate, normal rhythm, normal heart sounds. Absent: systolic murmur, diastolic murmur, rubs, gallop - GI/Abdominal GI/Abdominal exam: Present: soft, normal bowel sounds. Absent: distended, tenderness, guarding, rebound - Extremities Exam Extremities exam: Present: normal inspection - Back Exam Back exam: Present: normal inspection - Neurological Exam Neurological exam: Present: alert, oriented X3 - Psychiatric Psychiatric exam: Present: depressed, flat affect - Skin Skin exam: Present: warm, dry, intact, normal color. Absent: rash ED Course Vital Signs 01/09/18 01/09/18 01/09/18 03:32 03:46 04:00 Temperature Pulse Rate 80 74 Respiratory 17 15 Rate Blood Pressure 130/62 156/78 O2 Sat by Pulse 98 98 99 Oximetry 01/09/18 01/09/18 01/09/18 04:03 04:16 04:30 Temperature 98 F Pulse Rate 86 80 Respiratory 20 27 H 23 Rate Blood Pressure 130/62 150/75 154/72 O2 Sat by Pulse 100 99 98 Oximetry 01/09/18 01/09/18 04:38 04:45 Temperature Pulse Rate 79 Respiratory 18 Rate Blood Pressure 156/78 O2 Sat by Pulse 100 Oximetry CHANDLER score - Chandler Score Age > 65: (0) No Aspirin use within the Past 7 Days: (1) Yes 3 or more CAD Risk Factors: (1) Yes 2 or more Angina events in past 24 hrs: (1) Yes Known CAD with more than 50% Stenosis: (0) No Elevated Cardiac Markers: (0) No ST Deviation Greater than 0.5mm: (0) No CHANDLER Score: 3 ED Medical Decision Making - Lab Data Result diagrams: 01/09/18 04:14 01/09/18 04:14 Laboratory Results - last 24 hr 01/09/18 01/09/18 04:14 04:14 WBC 6.3 RBC 4.04 Hgb 12.1 Hct 37.2 MCV 92 MCH 30 MCHC 33 RDW 13.1 L Plt Count 252 Lymph % (Auto) 21.9 [place] % (Auto) 8.1 H Eos % (Auto) 1.5 Baso % (Auto) 0.6 Lymph # 1.4 [place] # 0.5 Eos # 0.1 Baso # 0.0 Seg Neutrophils % 67.9 Seg Neutrophils # 4.2 Sodium 137 Potassium 4.8 Chloride 97.4 L Carbon Dioxide 24 Anion Gap 20 BUN 15 Creatinine 0.7 Estimated GFR > 60 BUN/Creatinine Ratio 21 Glucose 296 H Calcium 9.3 Troponin T < 0.010 Vital Signs - 24 hr 01/09/18 01/09/18 01/09/18 03:32 03:46 04:00 Temperature Pulse Rate 80 74 Respiratory 17 15 Rate Blood Pressure 130/62 156/78 O2 Sat by Pulse 98 98 99 Oximetry 01/09/18 01/09/18 01/09/18 04:03 04:16 04:30 Temperature 98 F Pulse Rate 86 80 Respiratory 20 27 H 23 Rate Blood Pressure 130/62 150/75 154/72 O2 Sat by Pulse 100 99 98 Oximetry 01/09/18 01/09/18 04:38 04:45 Temperature Pulse Rate 79 Respiratory 18 Rate Blood Pressure 156/78 O2 Sat by Pulse 100 Oximetry - EKG Data -: EKG Interpreted by Md - EKG Data When compared to previous EKG there are: no significant change 01/09/18 04:31 Rate 80 bpm nl axis nl intervals nonspecific T wave pattern no ST elevation diffuse T wave flattening unchanged from 02/01/2017 - Radiology Data Radiology results: report reviewed, image reviewed no acute process - Medical Decision Making Ms. Okeefe presents with chest pain. Concern from ACS. I do not suspect PE/ dissection. I reviewed EMR. normal cardiac stress test last year. Admitted to hospitalist service for cardiac evaluation Critical care attestation.: If time is entered above; I have spent that time in minutes in the direct care of this critically ill patient, excluding procedure time. ED Disposition Clinical Impression: Chest pain Disposition: OP ADMIT IP TO THIS HOSP Is pt being admited?: Yes Does the pt Need Aspirin: No Condition: Stable Instructions: Chest Pain (ED) Time of Disposition: 04:34
[2018-01-09 04:35] LABS: Basophils % (Auto) 0.6 % (0.0-1.8); Eosinophils # (Auto) 0.1 K/mm3 (0.0-0.4); Eosinophils % (Auto) 1.5 % (0.0-4.3); Hematocrit 37.2 % (30.3-42.9); Hemoglobin 12.1 gm/dl (10.1-14.3); Lymphocytes # (Auto) 1.4 K/mm3 (1.2-5.4); Lymphocytes % (Auto) 21.9 % (13.4-35.0); Mean Corpuscular HGB Conc 33 % (30-34); Mean Corpuscular Hemoglobin 30 pg (28-32); Mean Corpuscular Volume 92 fl (79-97); Monocytes # (Auto) 0.5 K/mm3 (0.0-0.8); Monocytes % (Auto) 8.1 % (0.0-7.3); Platelet Count 252 K/mm3 (140-440); Red Blood Count 4.04 M/mm3 (3.65-5.03); Red Cell Distribution Width 13.1 % (13.2-15.2)
[2018-01-09 05:04] LABS: BUN/Creatinine Ratio 21; Blood Urea Nitrogen 15 mg/dL (7-17); Calcium 9.3 mg/dL (8.4-10.2); Hemolysis Index 85
[2018-01-09] MEDS ORDERED: ZOFRAN IV PRN (05:27)
[2018-01-09] MEDS ORDERED: TYLENOL PO PRN (05:27)
[2018-01-09] MEDS ORDERED: SODIUM CHLORIDE FLUSH SYRINGE 10 ML IV PRN (05:27)
[2018-01-09] MEDS ORDERED: PERCOCET 5/325 PO PRN (05:27)
[2018-01-09] MEDS ORDERED: D50W (25GM) Syringe IV PRN (05:27)
[2018-01-09] MEDS: HEPARIN SUB-Q SCH ×3 (06:23→21:30)
--- NOTE | 2018-01-09 06:44 | History and Physical Report ---
History of Present Illness Date of examination: 01/09/18 Chief complaint: Recurrent chest pain for 2 weeks, worse this morning History of present illness: 52-year-old -[place] female with past medical history of hypertension pulmonary embolism type 2 diabetes asthma seizure disorder and the ME presents to the ED with complaints of substernal chest pain off and on for 2 weeks, but worse today and she decided to come to the ED. The chest pain is nonexertional , radiating to the left arm and also associated with abdominal pain, shortness of breath, sweating. The pains last from 15 minutes to an hour She is being admitted for further evaluation of chest pain. She sees Dr. Kannan Lemons at [facility]. Her last stress test apparently was about 1-2 years ago , and her last heart cath was about 10-12 years ago., She denies any fever or chills. Denies sore throat or headaches. Denies nausea or vomiting diarrhea but complains of upper abdominal pain. Denies any melena or history of using NSAIDs. Denies dysuria or frequency of urination. Past History Past Medical History: CAD, diabetes, hypertension, hyperlipidemia, hypothyroidism, pulmonary embolism, seizures Past Surgical History: appendectomy Social history: no significant social history Family history: diabetes, hypertension Medications and Allergies Allergies Allergy/AdvReac Type Severity Reaction Status Date / Time No Known Allergies Allergy Verified 01/31/17 02:19 Home Medications Medication Instructions Recorded Confirmed Last Taken Type Metoprolol [Lopressor TAB] 25 mg PO BID 09/02/13 01/09/18 09/05/15 History levETIRAcetam [Keppra TAB] 1,500 mg PO BID 09/02/13 01/09/18 09/05/15 History Aspirin [Aspirin TAB] 81 mg PO QDAY 09/06/15 01/09/18 09/05/15 History Fluticasone [Flonase] 1 spray NS QDAY 09/06/15 01/09/18 09/05/15 History Gabapentin [Neurontin] 300 mg PO DAILY 09/06/15 01/09/18 09/05/15 History Insulin Lispro [HumaLOG VIAL] 25 units SQ AC 09/06/15 01/09/18 09/05/15 History Levothyroxine [Synthroid] 112 mcg PO QAM 09/06/15 01/09/18 09/05/15 History Omeprazole [PriLOSEC] 40 mg PO QDAY 09/06/15 01/09/18 09/05/15 History PARoxetine [Paxil] 30 mg PO DAILY 09/06/15 01/09/18 09/05/15 History Simvastatin [Zocor TAB] 40 mg PO QHS 09/06/15 01/09/18 09/05/15 History Benzonatate [Tessalon Perles] 100 mg PO Q8HR PRN #20 capsule 09/07/15 01/09/18 Unknown Rx Famotidine [Pepcid] 20 mg PO BID #60 tablet 09/07/15 01/09/18 Unknown Rx Meloxicam [Mobic] 7.5 mg PO QDAY #14 tablet 09/07/15 01/09/18 Unknown Rx Insulin Degludec [Tresiba 90 unit SQ DAILY 07/07/16 01/09/18 Unknown History Flextouch U-100] Olmesartan/Hydrochlorothiazide 1 tab PO QDAY 07/07/16 01/09/18 Unknown History [Benicar HCT 40-25 mg] Symbicort 160-4.5 (Nf) 160 spray IH DAILY 07/07/16 01/09/18 Unknown History Pantoprazole [Protonix TAB] 40 mg PO DAILY #30 tablet 02/01/17 01/09/18 Unknown Rx Active Meds: Active Medications Acetaminophen (Tylenol) 650 mg PO Q4H PRN PRN Reason: Pain MILD(1-3)/Fever >100.5/OROURKE Aspirin (Baby Aspirin) 81 mg PO QDAY [facility] Dextrose (D50w (25gm) Syringe) 50 ml IV PRN PRN PRN Reason: Hypoglycemia Gabapentin (Neurontin) 300 mg PO DAILY [facility] Heparin Sodium (Porcine) (Heparin) 5,000 unit SUB-Q Q8HR [facility] Last Admin: 01/09/18 06:23 Dose: 5,000 unit Insulin Human Lispro (Humalog) 0 unit SUB-Q ACHS PRN; Protocol PRN Reason: Hyperglycemia Levetiracetam (Keppra) 1,500 mg PO BID [facility] Levothyroxine Sodium (Synthroid) 112 mcg PO DAILY@0600 [facility] Losartan Potassium (Cozaar) 50 mg PO DAILY [facility] Metoprolol Tartrate (Lopressor) 25 mg PO BID [facility] Miscellaneous Medication (Insulin Degludec [Tresiba Flextouch U-100]) 35 unit SQ DAILY [facility] Ondansetron HCl (Zofran) 4 mg IV Q8H PRN PRN Reason: Nausea And Vomiting Oxycodone/Acetaminophen (Percocet 5/325) 1 tab PO Q6H PRN PRN Reason: Pain, Moderate (4-6) Pantoprazole Sodium (Protonix) 40 mg PO DAILY [facility] Paroxetine HCl (Paxil) 30 mg PO DAILY [facility] Pravastatin Sodium (Pravachol) 80 mg PO QHS [facility] Sodium Chloride (Sodium Chloride Flush Syringe 10 Ml) 10 ml IV BID [facility] Sodium Chloride (Sodium Chloride Flush Syringe 10 Ml) 10 ml IV PRN PRN PRN Reason: LINE FLUSH Review of Systems All systems: negative (as stated in history of present illness otherwise unremarkable) Exam - Constitutional Vitals: Temp Pulse Resp BP Pulse Ox 98 F 79 18 156/78 100 01/09/18 04:03 01/09/18 04:38 01/09/18 04:45 01/09/18 04:38 01/09/18 04:45 General appearance: Present: no acute distress, well-nourished - EENT Eyes: Present: PERRL, EOM intact ENT: hearing intact, clear oral mucosa - Neck Neck: Present: supple, normal ROM. Absent: masses or JVD - Respiratory Respiratory effort: normal Respiratory: bilateral: CTA - Cardiovascular Rhythm: regular Heart Sounds: Present: S1 & S2 - Extremities Extremities: No edema - Abdominal General gastrointestinal: Present: soft, non-tender. Absent: hepatomegaly, splenomegaly - Rectal Rectal Exam: deferred - Integumentary Integumentary: Present: clear - Musculoskeletal Musculoskeletal: strength equal bilaterally - Psychiatric Psychiatric: appropriate mood/affect - Neurologic Neurologic: moves all extremities Results - Labs CBC & Chem 7: 01/09/18 04:14 01/09/18 04:14 Labs: Abnormal lab results 01/09/18 01/09/18 01/09/18 Range/Units 04:14 04:14 04:14 RDW 13.1 L (13.2-15.2) % [place] % (Auto) 8.1 H (0.0-7.3) % Chloride 97.4 L (98-107) mmol/L Glucose 296 H (65-100) mg/dL Hemoglobin A1c 10.9 H (4-6) % Assessment and Plan - Patient Problems (1) Chest pain Current Visit: Yes Status: Acute Qualifiers: Chest pain type: precordial pain Qualified Code(s): R07.2 - Precordial pain Plan to address problem: Admit patient to telemetry floor Serial troponin levels First set of troponin was normal Cardiology consult Oxygen supplement will defer echocardiogram cardiogram to cardiology Stress thallium if ME is ruled out Aspirin daily Will check d-dimer as patient gives a past history of PE, although possibility of PE is low as her O2 sats are sugars are good and she is not tachycardic (2) Hypothyroidism Current Visit: Yes Status: Acute Qualifiers: Hypothyroidism type: acquired Qualified Code(s): E03.9 - Hypothyroidism, unspecified Plan to address problem: Continue Synthroid (3) Seizure disorder Onset Date: 08/15/14 Current Visit: No Status: Chronic Plan to address problem: Continue Keppra (4) Diabetes mellitus, type 2 Current Visit: No Status: Chronic Qualifiers: Diabetes mellitus watermelon inspector insulin use: with mcc use Diabetes mellitus complication status: without complication Qualified Code(s): E11.9 - Type 2 diabetes mellitus without complications; Z79.4 - termite treater helper (current) use of insulin Plan to address problem: Initiate insulin sliding scale coverage and basal insulin (5) Hypertension Current Visit: No Status: Chronic Qualifiers: Hypertension type: essential hypertension Qualified Code(s): I10 - Essential (primary) hypertension Plan to address problem: Continue home medications
[2018-01-09] MEDS ORDERED: HumaLOG SUB-Q PRN (07:30)
[2018-01-09] MEDS: SYNTHROID PO SCH (08:43)
[2018-01-09] MEDS ORDERED: HYDROCHLOROTHIAZIDE PO SCH (10:00)
[2018-01-09] MEDS ORDERED: OLMESARTAN PO SCH (10:00)
[2018-01-09] MEDS ORDERED: SYNTHROID PO SCH (10:00)
[2018-01-09] MEDS ORDERED: NON-FORMULARY (Levetiracetam [Keppra Tab] 1,500 MG) PO SCH (10:00)
[2018-01-09] MEDS ORDERED: INSULIN DEGLUDEC 35 UNIT SQ SCH (10:00)
[2018-01-09] MEDS ORDERED: ASPIRIN PO SCH (10:00)
[2018-01-09] MEDS ORDERED: COZAAR PO SCH (10:00)
--- NOTE | 2018-01-09 10:34 | Cat Scan Report ---
FINAL REPORT EXAM: CT ANGIO CHEST HISTORY: chest pain COMPARISON: CT angiogram of the chest performed on 09/06/2015 TECHNIQUE: Multiple contiguous axial images were obtained from the thoracic inlet to the upper abdomen after administration of IV contrast. Reformatted sagittal and coronal images were available for review. FINDINGS: Medical devices: None. Thyroid: Normal. Lymph nodes: No significant mediastinal, hilar, or axillary lymphadenopathy. Vasculature: Normal caliber of the pulmonary artery. No filling defect to suggest pulmonary embolism. Normal caliber of the thoracic aorta. Conventional branching pattern of the aortic arch. Heart: Normal heart size. Other mediastinal structures: Small hiatal hernia. Lung parenchyma: Minimal dependent atelectasis. Nonspecific ground-glass opacities in the superior aspect of the left lower lobe. Airways: Patent. No bronchiectasis. Pleura: No pleural effusion or pneumothorax. Chest wall and spine: No suspicious osseous lesions. No acute fracture or dislocation. The soft tissues are normal. Upper Abdomen: Normal. IMPRESSION: 1. No evidence of pulmonary embolism. 2. Nonspecific ground-glass opacities in the superior aspect of the left lower lobe that may reflect infiltrate, edema, or atelectasis.
[2018-01-09] MEDS: PEPCID PO SCH ×2 (10:47→21:29)
[2018-01-09] MEDS: KEPPRA PO SCH ×2 (10:48→21:29)
[2018-01-09] MEDS: LOPRESSOR PO SCH ×2 (10:48→21:30)
[2018-01-09] MEDS: PAXIL PO SCH (10:49)
[2018-01-09] MEDS: PROTONIX PO SCH (10:50)
[2018-01-09] MEDS: NEURONTIN PO SCH (10:50)
[2018-01-09] MEDS: BABY ASPIRIN PO SCH (11:49)
[2018-01-09] MEDS: HCTZ PO SCH (12:15)
[2018-01-09] MEDS: HumaLOG SUB-Q SCH ×3 (12:16→21:29)
--- NOTE | 2018-01-09 12:25 | Event Note ---
Date: 01/09/18 52-year-old -[place] Islander female patient with significant history of hypertension and pulmonary embolism type 2 diabetes mellitus was admitted through the emergency room this morning with atypical chest pain of 2 weeks' duration Patient seen and examined, medical records reviewed Agree with the current treatment plan, Cardiology was consulted CTA chest negative for PE however revealed nonspecific groundglass opacity on the left lower lobe possible infiltrate Continue current management
[2018-01-09] MEDS: FLONASE NS SCH (12:41)
[2018-01-09] MEDS: MOBIC PO SCH (12:42)
[2018-01-09] MEDS: SODIUM CHLORIDE FLUSH SYRINGE 10 ML IV SCH ×2 (12:44→21:30)
[2018-01-09] MEDS: COZAAR PO SCH (18:27)
[2018-01-09] MEDS ORDERED: PRAVACHOL PO SCH (22:00)
[2018-01-09] MEDS ORDERED: NON-FORMULARY (Simvastatin 40 MG) PO SCH (22:00)
[2018-01-09] MEDS ORDERED: ATIVAN IV PRN (22:46)
[2018-01-09] MEDS ORDERED: ATIVAN ONE (22:46)
[2018-01-10] MEDS: HEPARIN SUB-Q SCH ×2 (05:23→14:58)
[2018-01-10] MEDS: SYNTHROID PO SCH (05:23)
[2018-01-10] MEDS: HumaLOG SUB-Q SCH ×2 (07:30→13:53)
[2018-01-10 08:10] LABS: BUN/Creatinine Ratio 26; Blood Urea Nitrogen 18 mg/dL (7-17); Calcium 9.3 mg/dL (8.4-10.2); Hemolysis Index 15
[2018-01-10] MEDS ORDERED: LEXISCAN IV ONE ×2 (08:57→09:45)
--- NOTE | 2018-01-10 13:24 | Progress Note ---
Hospitalist Physical - Constitutional Vitals: Temp Pulse Resp BP Pulse Ox 97.4 F L 78 20 135/60 99 01/10/18 04:09 01/10/18 12:51 01/10/18 04:09 01/10/18 12:51 01/10/18 12:51 General appearance: Present: no acute distress, well-nourished Results - Labs CBC & Chem 7: 01/09/18 04:14 01/10/18 07:14 Labs: Laboratory Last Values WBC 6.3 K/mm3 (4.5-11.0) 01/09/18 04:14 RBC 4.04 M/mm3 (3.65-5.03) 01/09/18 04:14 Hgb 12.1 gm/dl (10.1-14.3) 01/09/18 04:14 Hct 37.2 % (30.3-42.9) 01/09/18 04:14 MCV 92 fl (79-97) 01/09/18 04:14 MCH 30 pg (28-32) 01/09/18 04:14 MCHC 33 % (30-34) 01/09/18 04:14 RDW 13.1 % (13.2-15.2) L 01/09/18 04:14 Plt Count 252 K/mm3 (140-440) 01/09/18 04:14 Lymph % (Auto) 21.9 % (13.4-35.0) 01/09/18 04:14 [place] % (Auto) 8.1 % (0.0-7.3) H 01/09/18 04:14 Eos % (Auto) 1.5 % (0.0-4.3) 01/09/18 04:14 Baso % (Auto) 0.6 % (0.0-1.8) 01/09/18 04:14 Lymph # 1.4 K/mm3 (1.2-5.4) 01/09/18 04:14 [place] # 0.5 K/mm3 (0.0-0.8) 01/09/18 04:14 Eos # 0.1 K/mm3 (0.0-0.4) 01/09/18 04:14 Baso # 0.0 K/mm3 (0.0-0.1) 01/09/18 04:14 Seg Neutrophils % 67.9 % (40.0-70.0) 01/09/18 04:14 Seg Neutrophils # 4.2 K/mm3 (1.8-7.7) 01/09/18 04:14 D-Dimer 227.36 ng/mlDDU (0-234) 01/09/18 07:08 Sodium 134 mmol/L (137-145) L 01/10/18 07:14 Potassium 4.5 mmol/L (3.6-5.0) 01/10/18 07:14 Chloride 95.0 mmol/L (98-107) L 01/10/18 07:14 Carbon Dioxide 24 mmol/L (22-30) 01/10/18 07:14 Anion Gap 20 mmol/L 01/10/18 07:14 BUN 18 mg/dL (7-17) H 01/10/18 07:14 Creatinine 0.7 mg/dL (0.7-1.2) 01/10/18 07:14 Estimated GFR > 60 ml/min 01/10/18 07:14 BUN/Creatinine Ratio 26 % 01/10/18 07:14 Glucose 321 mg/dL (65-100) H 01/10/18 07:14 POC Glucose 314 (70-105) H 01/10/18 12:56 Hemoglobin A1c 10.9 % (4-6) H 01/09/18 04:14 Calcium 9.3 mg/dL (8.4-10.2) 01/10/18 07:14 Troponin T < 0.010 ng/mL (0.00-0.029) 01/09/18 23:28
[2018-01-10] MEDS: COZAAR PO SCH (13:46)
[2018-01-10] MEDS: PEPCID PO SCH (13:46)
[2018-01-10] MEDS: MOBIC PO SCH (13:47)
[2018-01-10] MEDS: KEPPRA PO SCH (13:48)
[2018-01-10] MEDS: PROTONIX PO SCH (13:48)
[2018-01-10] MEDS: NEURONTIN PO SCH (13:49)
[2018-01-10] MEDS: LOPRESSOR PO SCH (13:49)
[2018-01-10] MEDS: HCTZ PO SCH (13:50)
[2018-01-10] MEDS: PAXIL PO SCH (13:50)
[2018-01-10] MEDS: BABY ASPIRIN PO SCH (13:51)
[2018-01-10] MEDS: SODIUM CHLORIDE FLUSH SYRINGE 10 ML IV SCH (13:52)
[2018-01-10] MEDS: FLONASE NS SCH (13:52)
--- NOTE | 2018-01-10 14:00 | Consultation ---
History of Present Illness Consult date: 01/10/18 Consult reason: chest pain History of present illness: 52-year-old -[place] female with past medical history of hypertension, pulmonary embolism, type 2 diabetes, asthma, seizure disorder, and NE presents to the ED with complaints of substernal chest pain off and on for 2 weeks, nonexertional, radiating to the left arm and also associated with abdominal pain , shortness of breath, sweating. The pains last from 15 minutes to an hour. She denies any orthopnea, pnd, palpitations, dizziness or syncope. Past History Past Medical History: CAD, diabetes, hypertension, hyperlipidemia, hypothyroidism, pulmonary embolism, seizures Past Surgical History: appendectomy Social history: no significant social history Family history: diabetes, hypertension Medications and Allergies Allergies Allergy/AdvReac Type Severity Reaction Status Date / Time No Known Allergies Allergy Verified 01/31/17 02:19 Home Medications Medication Instructions Recorded Confirmed Last Taken Type Metoprolol [Lopressor TAB] 25 mg PO BID 09/02/13 01/09/18 09/05/15 History levETIRAcetam [Keppra TAB] 1,500 mg PO BID 09/02/13 01/09/18 09/05/15 History Aspirin [Aspirin TAB] 81 mg PO QDAY 09/06/15 01/09/18 09/05/15 History Fluticasone [Flonase] 1 spray NS QDAY 09/06/15 01/09/18 09/05/15 History Gabapentin [Neurontin] 300 mg PO DAILY 09/06/15 01/09/18 09/05/15 History Insulin Lispro [HumaLOG VIAL] 25 units SQ AC 09/06/15 01/09/18 09/05/15 History Levothyroxine [Synthroid] 112 mcg PO QAM 09/06/15 01/09/18 09/05/15 History Omeprazole [PriLOSEC] 40 mg PO QDAY 09/06/15 01/09/18 09/05/15 History PARoxetine [Paxil] 30 mg PO DAILY 09/06/15 01/09/18 09/05/15 History Simvastatin [Zocor TAB] 40 mg PO QHS 09/06/15 01/09/18 09/05/15 History Benzonatate [Tessalon Perles] 100 mg PO Q8HR PRN #20 capsule 09/07/15 01/09/18 Unknown Rx Famotidine [Pepcid] 20 mg PO BID #60 tablet 09/07/15 01/09/18 Unknown Rx Meloxicam [Mobic] 7.5 mg PO QDAY #14 tablet 09/07/15 01/09/18 Unknown Rx Insulin Degludec [Tresiba 90 unit SQ DAILY 07/07/16 01/09/18 Unknown History Flextouch U-100] Olmesartan/Hydrochlorothiazide 1 tab PO QDAY 07/07/16 01/09/18 Unknown History [Benicar HCT 40-25 mg] Symbicort 160-4.5 (Nf) 160 spray IH DAILY 07/07/16 01/09/18 Unknown History Pantoprazole [Protonix TAB] 40 mg PO DAILY #30 tablet 02/01/17 01/09/18 Unknown Rx Active Meds: Active Medications Acetaminophen (Tylenol) 650 mg PO Q4H PRN PRN Reason: Pain MILD(1-3)/Fever >100.5/OROURKE Aspirin (Baby Aspirin) 81 mg PO QDAY [facility] Last Admin: 01/10/18 13:51 Dose: 81 mg Dextrose (D50w (25gm) Syringe) 50 ml IV PRN PRN PRN Reason: Hypoglycemia Famotidine (Pepcid) 20 mg PO BID [facility] Last Admin: 01/10/18 13:46 Dose: 20 mg Fluticasone Propionate (Flonase) 50 mcg NS QDAY [facility] Last Admin: 01/10/18 13:52 Dose: 50 mcg Gabapentin (Neurontin) 300 mg PO DAILY [facility] Last Admin: 01/10/18 13:49 Dose: 300 mg Heparin Sodium (Porcine) (Heparin) 5,000 unit SUB-Q Q8HR [facility] Last Admin: 01/10/18 05:23 Dose: 5,000 unit Hydrochlorothiazide (Hctz) 25 mg PO QDAY [facility] Last Admin: 01/10/18 13:50 Dose: 25 mg Insulin Human Isoph/Insulin Regular (Humulin 70/30) 20 unit SUB-Q BIDDIAB [facility] Insulin Human Lispro (Humalog) 0 unit SUB-Q ACHS [facility]; Protocol Last Admin: 01/10/18 13:53 Dose: 6 unit Levetiracetam (Keppra) 1,500 mg PO BID [facility] Last Admin: 01/10/18 13:48 Dose: 1,500 mg Levothyroxine Sodium (Synthroid) 112 mcg PO DAILY@0600 [facility] Last Admin: 01/10/18 05:23 Dose: 112 mcg Lorazepam (Ativan) 1 mg IV Q4H PRN PRN Reason: Seizures Losartan Potassium (Cozaar) 50 mg PO QDAY [facility] Last Admin: 01/10/18 13:46 Dose: 50 mg Meloxicam (Mobic) 7.5 mg PO QDAY [facility] Last Admin: 01/10/18 13:47 Dose: 7.5 mg Metoprolol Tartrate (Lopressor) 25 mg PO BID [facility] Last Admin: 01/10/18 13:49 Dose: 25 mg Miscellaneous Medication (Insulin Degludec [Tresiba Flextouch U-100]) 35 unit SQ DAILY [facility] Ondansetron HCl (Zofran) 4 mg IV Q8H PRN PRN Reason: Nausea And Vomiting Oxycodone/Acetaminophen (Percocet 5/325) 1 tab PO Q6H PRN PRN Reason: Pain, Moderate (4-6) Last Admin: 01/09/18 18:37 Dose: 1 tab Pantoprazole Sodium (Protonix) 40 mg PO DAILY [facility] Last Admin: 01/10/18 13:48 Dose: 40 mg Paroxetine HCl (Paxil) 30 mg PO DAILY [facility] Last Admin: 01/10/18 13:50 Dose: 30 mg Pravastatin Sodium (Pravachol) 80 mg PO QHS [facility] Last Admin: 01/09/18 21:29 Dose: 80 mg Sodium Chloride (Sodium Chloride Flush Syringe 10 Ml) 10 ml IV BID [facility] Last Admin: 01/10/18 13:52 Dose: 10 ml Sodium Chloride (Sodium Chloride Flush Syringe 10 Ml) 10 ml IV PRN PRN PRN Reason: LINE FLUSH Review of Systems All systems: negative Physical Examination Vital Signs Pulse Ox 98 01/09/18 03:32 General appearance: no acute distress HEENT: Positive: PERRL, EOMI Cardiac: Positive: Reg Rate and Rhythm, S1/S2 Lungs: Positive: Normal Exam Neuro: Positive: Cranial Nerve 2-12 Intact Abdomen: Positive: Soft, Active Bowel Sounds Extremities: Present: normal Results 01/09/18 04:14 01/10/18 07:14 Comprehensive Metabolic Panel 01/10/18 Range/Units 07:14 Sodium 134 L (137-145) mmol/L Potassium 4.5 (3.6-5.0) mmol/L Chloride 95.0 L (98-107) mmol/L Carbon Dioxide 24 (22-30) mmol/L BUN 18 H (7-17) mg/dL Creatinine 0.7 (0.7-1.2) mg/dL Glucose 321 H (65-100) mg/dL Calcium 9.3 (8.4-10.2) mg/dL EKG interpretations - Telemetry EKG Rhythm: Sinus Rhythm Assessment and Plan (1) Chest pain (2) Hypothyroidism (3) Seizure disorder (4) Diabetes mellitus, type 2 (5) Hypertension stress test shows small fixed apical defect. No significant ischemia. EF 77%. low risk study Continue maximal medical therapy and improved antihypertensive control. Patient may follow up in the outpatient clinic
--- NOTE | 2018-01-10 14:34 | Discharge Summary ---
Providers - Providers Date of Admission: 01/09/18 05:27 Date of discharge: 01/10/18 Attending physician: COREY MALIN 01/09/18 05:27 Consult to Physician [CONS] Routine Comment: Consulting Provider: RUSTY COWAN Physician Instructions: Reason For Exam: chest pain Primary care physician: OIL SPREADER OPERATOR Hospitalization Reason for admission: intermittent chest pain for the last 3 weeks Condition: Stable Pertinent studies: CTA chest; no evidence of PE Nonspecific groundglass opacity in the superior aspect of left lower lobe that may reflect infiltrate edema or atelectasis[the patient has no symptoms, no fever, leukocytosis or respiratory symptoms] Chest x-ray; no acute abnormality Stress test; small fixed apical defect and no significant ischemia LVEF 77% low risk study Hospital course: Very pleasant 52-year-old obese -[place] female patient with multiple medical problems on multiple medications was admitted through emergency room with intermittent chest pain of 3 weeks' duration Patient has multiple risk factors, Admitted to the hospital symptomatically managed Underwent Lexiscan stress test, which was negative for reversible ischemia, small fixed defect, LVEF 77% Patient was symptomatically managed, blood pressure blood sugars closely monitored medications optimized Patient's symptoms significantly improved Chest pain could be noncardiac ,secondary to gastroesophageal reflux disease Patient counseled seizure precautions, advised not to drive or operate heavy machinery until cleared by primary care physician. Patient also has multiple home medications, advised review with primary care physician for advice. Counseling; weight reduction and medically stable The patient is comfortable in no new complaints, Vital signs stable Physical examination prior to discharge is unremarkable Patient is stable at discharge Discharge diagnoses; --Atypical chest pain; probably noncardiac --Chest pain due to GERD --Type 2 diabetes mellitus --Hypertension --Dyslipidemia --Hypothyroidism --Seizure disorder --Obesity --Diabetic neuropathy --Depression Disposition: DC-01 TO HOME OR SELFCARE Time spent for discharge: 33 min Core Measure Documentation - Palliative Care Palliative Care/ Comfort Measures: Not Applicable - Core Measures Any of the following diagnoses?: none Exam - Constitutional Vitals: Temp Pulse Resp BP Pulse Ox 97.4 F L 78 20 135/60 99 01/10/18 04:09 01/10/18 12:51 01/10/18 04:09 01/10/18 12:51 01/10/18 12:51 General appearance: Present: no acute distress, well-nourished, obese - EENT Eyes: Present: PERRL, EOM intact - Neck Neck: Present: supple, normal ROM - Respiratory Respiratory effort: normal Respiratory: bilateral: diminished, negative: rales, rhonchi, wheezing - Cardiovascular Rhythm: regular Heart Sounds: Present: S1 & S2 - Extremities Extremities: no ischemia, No edema - Abdominal General gastrointestinal: Present: soft, non-tender, non-distended, normal bowel sounds - Integumentary Integumentary: Present: clear, warm - Musculoskeletal Musculoskeletal: strength equal bilaterally - Psychiatric Psychiatric: appropriate mood/affect, cooperative - Neurologic Neurologic: CNII-XII intact, moves all extremities Plan Activity: advance as tolerated, no driving until cleared by PCP, other (seizure precautions) Diet: diabetic, other (cardiac diet) Additional Instructions: Seizure precautions. If you have recurrent chest pain contact M.D. or go to emergency room. You need to see private track production engineer for further evaluation and management Follow up with: DARIUS CARRINGTON MD [Primary Care Provider] - 3-5 Days SARAH PINEDA MD [Staff Physician] - 7 Days
[2018-01-10 17:48] VITALS: BP 216/112
--- NOTE | 2018-01-12 23:41 | Treadmill Report ---
INDICATION: Chest pain. ORDERING PHYSICIAN: Champ Gotti MD FINDINGS: 1. There is no scintigraphic evidence of myocardial ischemia. There is evidence of a fixed apical inferior wall defect that is likely related to motion artifact. There is also evidence of breast attenuation artifact involving the anterior wall. The gated wall imaging reveals normal wall motion and wall thickening with an ejection fraction measured at 77%. 2. This is a fair quality nuclear perfusion scan limited by motion artifact as well as breast attenuation artifact; however, there is no scintigraphic evidence of myocardial ischemia. 3. There is normal left ventricular size and systolic function with an ejection fraction measured at 77%. JOB# [id number] CHRISTY/YAIMA
== END 2018-01-10 17:40 | disposition home or self-care (01) ==
LOC: ED 03:28 → 4A 05:27 → INTOOBSV 05:27
PROVIDERS: ADMIT Internal Medicine; ATTEND Internal Medicine
DX: R07.89 Other chest pain (principal); I10 Essential (primary) hypertension; E11.9 Type 2 diabetes mellitus without complications; G40.909 Epilepsy, unspecified, not intractable, without status epilepticus; F32.9 Major depressive disorder, single episode, unspecified; I25.10 Atherosclerotic heart disease of native coronary artery without angina pectoris; J45.909 Unspecified asthma, uncomplicated; E03.9 Hypothyroidism, unspecified; Z90.49 Acquired absence of other specified parts of digestive tract; Z86.711 Personal history of pulmonary embolism; Z79.01 Long term (current) use of anticoagulants; Z82.49 Family history of ischemic heart disease and other diseases of the circulatory system; Z83.3 Family history of diabetes mellitus; Z86.73 Personal history of transient ischemic attack (TIA), and cerebral infarction without residual deficits; Z79.4 Long term (current) use of insulin; Z86.718 Personal history of other venous thrombosis and embolism
CPT/HCPCS: 36415; 71045; 71275; 78452; 80048; 82962; 83036; 84484; 85025; 85379; 93005; 93010; 93017; 94760; 96372; 96374; 96375; 99285; A9270; A9502; G0378; J1644; J2060; J2270; J2405; J2785; Q9967; J1815

== ENCOUNTER 2019-01-23 02:06 | Emergency (ER) | payer OTHER ==
[2019-01-23 02:56] VITALS: BP 148/88
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
--- NOTE | 2019-01-23 04:37 | XRay Report ---
LEFT RIBS PLUS CHEST 5 VIEWS INDICATION / CLINICAL INFORMATION: Left chest and rib pain COMPARISON: None available. FINDINGS: BONES and JOINT(S): No acute fracture or subluxation. There are degenerative changes of the spine. SOFT TISSUES: No significant abnormality. CHEST: No significant abnormality. ADDITIONAL FINDINGS: None. IMPRESSION: No acute findings. Signer Name: Carlos Villagran MD Signed: 01/23/2019 4:33 AM Workstation Name: [id number] [email or web address] [email or web address]
--- NOTE | 2019-01-23 04:39 | XRay Report ---
LEFT SHOULDER 3 VIEWS INDICATION / CLINICAL INFORMATION: Left shoulder pain COMPARISON: None available. FINDINGS: BONES and JOINT(S): No acute fracture or subluxation. No significant arthritis. SOFT TISSUES: No significant abnormality. ADDITIONAL FINDINGS: None. IMPRESSION: No acute findings. Signer Name: Carlos Villagran MD Signed: 01/23/2019 4:35 AM Workstation Name: [email or web address]
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
== END 2019-01-23 04:55 | disposition home or self-care (01) ==
LOC: ED 02:06
DX: M54.5 Low back pain (principal); M25.512 Pain in left shoulder; R07.81 Pleurodynia; I10 Essential (primary) hypertension; E11.9 Type 2 diabetes mellitus without complications; J45.909 Unspecified asthma, uncomplicated; F41.9 Anxiety disorder, unspecified; Z86.718 Personal history of other venous thrombosis and embolism; Z98.890 Other specified postprocedural states; Z90.49 Acquired absence of other specified parts of digestive tract; Z79.82 Long term (current) use of aspirin; Z79.4 Long term (current) use of insulin; Z79.899 Other long term (current) drug therapy; V89.2XXA Person injured in unspecified motor-vehicle accident, traffic, initial encounter; Y93.89 Activity, other specified; Y92.488 Other paved roadways as the place of occurrence of the external cause; Y99.8 Other external cause status
CPT/HCPCS: 72100; 99283

== ENCOUNTER 2021-05-24 14:28 | Observation (INO) | payer OTHER ==
[2021-05-24] MEDS ORDERED: ONDANSETRON 4 MG/2 ML INJ IV ONE (15:21)
[2021-05-24] MEDS ORDERED: MORPHINE 4 MG/1 ML INJ IV ONE (15:21)
[2021-05-24] MEDS ORDERED: SODIUM CHLORIDE 0.9% 1000 ML 1,000 ML IV ONE (15:21)
[2021-05-24 15:33] LABS: Alanine Aminotransferase 18 units/L (7-56); Albumin 4.3 g/dL (3.9-5); Blood Urea Nitrogen 13 mg/dL (7-17); Calcium 9.6 mg/dL (8.4-10.2); Hemolysis Index 8
[2021-05-24 15:34] LABS: BUN/Creatinine Ratio 22
[2021-05-24 15:35] LABS: Basophils % (Auto) 0.5 % (0.0-1.8); Hematocrit 38.4 % (30.3-42.9); Hemoglobin 12.5 gm/dl (10.1-14.3); Lymphocytes # (Auto) 1.6 K/mm3 (1.2-5.4); Lymphocytes % (Auto) 35.6 % (13.4-35.0); Mean Corpuscular HGB Conc 33 % (30-34); Mean Corpuscular Volume 89 fl (79-97); Monocytes # (Auto) 0.4 K/mm3 (0.0-0.8); Monocytes % (Auto) 8.4 % (0.0-7.3); Platelet Count 251 K/mm3 (140-440); Red Blood Count 4.34 M/mm3 (3.65-5.03); Red Cell Distribution Width 12.8 % (13.2-15.2)
--- NOTE | 2021-05-24 15:36 | Emergency Department Report ---
HPI - General Chief Complaint: Hyperglycemia Time Seen by Provider: 05/24/21 14:55 - HPI HPI: This is a 55-year-old -[place] female presents to the emergency department with a complaint of uncontrolled diabetes despite compliance with her insulin and abdominal and bilateral flank pain. Patient says that the abdominal and flank pain has been going on since about February. The hyperglycemia has been going on for "a while." The patient says that she takes Humulin U 500 insulin 6 times per day and has been compliant with her medication. The abdominal and flank pain is described as a 10 out of 10 in intensity. She has some associated hematuria, mild dysuria, and says that her urine appears very concentrated with "bubbles." She denies any fever, nausea, vomiting, vaginal bleeding or discharge, chest pain, shortness of breath. She was sent in by the nurse practitioner for Dr. Daniel Smith with a note to evaluate for ketoacidosis. ED Past Medical Hx - Past Medical History Hx Hypertension: Yes Hx Heart Attack/AMI: No Hx Congestive Heart Failure: No Hx Diabetes: Yes Hx Deep Vein Thrombosis: Yes Hx Pulmonary Embolism: Yes (2000) Hx Liver Disease: No Hx Renal Disease: No Hx Sickle Cell Disease: No Hx Arthritis: No Hx Seizures: Yes Hx Kidney Stones: No Hx Asthma: Yes Hx COPD: No Hx Tuberculosis: No Hx Dementia: No Hx HIV: No Additional medical history: MVP. GLAUCOMA. GOUT. ANXIETY - Surgical History Hx Open Heart Surgery: No Hx Pacemaker: No Hx Internal Defibrillator: No Hx Cholecystectomy: No Hx Appendectomy: Yes Hx Breast Surgery: No - Social History Smoking Status: Never Smoker Substance Use Type: None - Medications Home Medications: Home Medications Medication Instructions Recorded Confirmed Last Taken Type Metoprolol [Lopressor TAB] 25 mg PO BID 09/02/13 05/25/21 09/05/15 History levETIRAcetam [Keppra TAB] 1,500 mg PO BID 09/02/13 05/25/21 05/24/21 11:30 History Aspirin 81 mg PO QDAY 09/06/15 05/25/21 09/05/15 History Gabapentin 300 mg PO DAILY 09/06/15 05/25/21 05/24/21 10:00 History Levothyroxine [Synthroid] 112 mcg PO QAM 09/06/15 05/25/21 05/24/21 07:00 History Omeprazole [PriLOSEC] 40 mg PO QDAY 09/06/15 05/25/21 05/24/21 12:30 History PARoxetine [Paxil] 30 mg PO DAILY 09/06/15 05/25/21 05/24/21 10:00 History Simvastatin (NF) [Zocor TAB] 40 mg PO QAM 09/06/15 05/25/21 05/24/21 10:00 History Benzonatate [Tessalon Perles] 100 mg PO Q8HR PRN #20 capsule 09/07/15 05/25/21 Unknown Rx Olmesartan/Hydrochlorothiazide 1 tab PO QDAY 07/07/16 05/25/21 05/24/21 12:00 History [Benicar HCT 40-25 mg] 40-25 Symbicort 160-4.5 (Nf) 160 spray IH DAILY 07/07/16 05/25/21 Unknown History Cyclobenzaprine [Flexeril 10 MG 10 mg PO QHS PRN #10 tablet 01/23/19 05/25/21 Unknown Rx TAB] Naproxen [EC-Naprosyn] 500 mg PO BID PRN #20 tablet. 01/23/19 05/25/21 Unknown Rx Humulin R U-500 Kwikpen 30 units SUB-Q 6XD 05/25/21 05/25/21 05/23/21 20:30 History 30 Latanoprost 0.005% 1 drop OD QHS 05/25/21 05/25/21 05/23/21 20:00 History ED Review of Systems ROS: Stated complaint: HIGH BLOOD SUGAR Other details as noted in HPI Comment: All other systems reviewed and negative Constitutional: denies: chills, fever Eyes: denies: eye pain, vision change ENT: denies: ear pain, throat pain Respiratory: denies: cough, shortness of breath Cardiovascular: denies: chest pain, palpitations Gastrointestinal: abdominal pain. denies: vomiting Genitourinary: dysuria, hematuria. denies: discharge Musculoskeletal: denies: joint swelling, arthralgia Skin: denies: rash, lesions Neurological: denies: headache, weakness Physical Exam - Physical Exam Vital Signs: Vital Signs 05/24/21 05/24/21 14:42 15:18 Temperature 99.0 F Pulse Rate 97 H 96 H Respiratory 16 13 Rate Blood Pressure 146/73 O2 Sat by Pulse 97 98 Oximetry Physical Exam: GENERAL: The patient is well-developed well-nourished. HENT: Normocephalic. Atraumatic. Patient has moist mucous membranes. EYES: Extraocular motions are intact. NECK: Supple. Trachea is midline. CHEST/LUNGS: Clear to auscultation. There is no respiratory distress noted. HEART/CARDIOVASCULAR: Regular. There is no tachycardia. There is no murmur. ABDOMEN: Abdomen is soft. There is generalized abdominal tenderness to palpation with upper quadrants greater than lower. No guarding. Patient has normal bowel sounds. There is no abdominal distention. SKIN: Skin is warm and dry. NEURO: The patient is awake, alert, and oriented. The patient is cooperative. The patient has no focal neurologic deficits. Normal speech. MUSCULOSKELETAL: There is no tenderness or deformity. There is no limitation range of motion. ED Course Vital Signs 05/24/21 05/24/21 14:42 15:18 Temperature 99.0 F Pulse Rate 97 H 96 H Respiratory 16 13 Rate Blood Pressure 146/73 O2 Sat by Pulse 97 98 Oximetry - Reevaluation(s) Reevaluation #1: 05/24/21 19:35 When I went into reevaluate the patient and discuss her lab and imaging results thus far, the patient had tachypnea, tachycardia, and was holding her chest saying that she had developed some chest pain. An EKG was done that does not show any morphology consistent with ST elevation myocardial infarction. I have ordered for the patient have a chest x-ray and a troponin. ED Medical Decision Making - Lab Data Result diagrams: 05/25/21 11:04 05/25/21 11:04 Lab Results 05/24/21 05/24/21 05/24/21 Range/Units 15:00 15:11 15:11 WBC 4.5 (4.5-11.0) K/mm3 RBC 4.34 (3.65-5.03) M/mm3 Hgb 12.5 (10.1-14.3) gm/dl Hct 38.4 (30.3-42.9) % MCV 89 (79-97) fl MCH 29 (28-32) pg MCHC 33 (30-34) % RDW 12.8 L (13.2-15.2) % Plt Count 251 (140-440) K/mm3 Lymph % (Auto) 35.6 H (13.4-35.0) % Wirt % (Auto) 8.4 H (0.0-7.3) % Eos % (Auto) 1.0 (0.0-4.3) % Baso % (Auto) 0.5 (0.0-1.8) % Lymph # (Auto) 1.6 (1.2-5.4) K/mm3 [place]irt # (Auto) 0.4 (0.0-0.8) K/mm3 Eos # (Auto) 0.0 (0.0-0.4) K/mm3 Baso # (Auto) 0.0 (0.0-0.1) K/mm3 Seg Neutrophils % 54.5 (40.0-70.0) % Seg Neutrophils # 2.4 (1.8-7.7) K/mm3 VBG pH (7.320-7.420) Sodium 134 L (137-145) mmol/L Potassium 4.2 (3.6-5.0) mmol/L Chloride 97.8 L (98-107) mmol/L Carbon Dioxide 20 L (22-30) mmol/L Anion Gap 20 mmol/L BUN 13 (7-17) mg/dL Creatinine 0.6 (0.6-1.2) mg/dL Estimated GFR > 60 ml/min BUN/Creatinine Ratio 22 % Glucose 402 H (65-100) mg/dL POC Glucose 347 H (70-105) mg/dL Ketones Quantitative Small (Negative) Calcium 9.6 (8.4-10.2) mg/dL Total Bilirubin 0.50 (0.1-1.2) mg/dL AST 19 (5-40) units/L ALT 18 (7-56) units/L Alkaline Phosphatase 117 (35-129) units/L Troponin T (0.00-0.029) ng/mL Total Protein 7.9 (6.3-8.2) g/dL Albumin 4.3 (3.9-5) g/dL Albumin/Globulin Ratio 1.2 % 05/24/21 05/24/21 05/24/21 Range/Units 15:24 18:35 19:08 WBC (4.5-11.0) K/mm3 RBC (3.65-5.03) M/mm3 Hgb (10.1-14.3) gm/dl Hct (30.3-42.9) % MCV (79-97) fl MCH (28-32) pg MCHC (30-34) % RDW (13.2-15.2) % Plt Count (140-440) K/mm3 Lymph % (Auto) (13.4-35.0) % Wirt % (Auto) (0.0-7.3) % Eos % (Auto) (0.0-4.3) % Baso % (Auto) (0.0-1.8) % Lymph # (Auto) (1.2-5.4) K/mm3 [place]irt # (Auto) (0.0-0.8) K/mm3 Eos # (Auto) (0.0-0.4) K/mm3 Baso # (Auto) (0.0-0.1) K/mm3 Seg Neutrophils % (40.0-70.0) % Seg Neutrophils # (1.8-7.7) K/mm3 VBG pH 7.381 (7.320-7.420) Sodium (137-145) mmol/L Potassium (3.6-5.0) mmol/L Chloride (98-107) mmol/L Carbon Dioxide (22-30) mmol/L Anion Gap mmol/L BUN (7-17) mg/dL Creatinine (0.6-1.2) mg/dL Estimated GFR ml/min BUN/Creatinine Ratio % Glucose (65-100) mg/dL POC Glucose 256 H (70-105) mg/dL Ketones Quantitative (Negative) Calcium (8.4-10.2) mg/dL Total Bilirubin (0.1-1.2) mg/dL AST (5-40) units/L ALT (7-56) units/L Alkaline Phosphatase (35-129) units/L Troponin T < 0.010 (0.00-0.029) ng/mL Total Protein (6.3-8.2) g/dL Albumin (3.9-5) g/dL Albumin/Globulin Ratio % - EKG Data -: EKG Interpreted by De EKG shows normal: sinus rhythm, axis, intervals, QRS complexes (Q waves to the anteroseptal leads), ST-T waves Rate: tachycardia (113 bpm) - EKG Data When compared to previous EKG there are: no significant change (Except for previous EKG did not show tachycardia) Interpretation: other (Sinus tachycardia 113 bpm, normal axis, Q waves to the anteroseptal leads) - Radiology Data Radiology results: report reviewed, image reviewed interpreted by me: Chest x-ray does not show any acute process. There are no pleural effusions, obvious pneumonia and there is no pneumothorax. No widened mediastinum. CT abdomen pelvis w con INDICATION / CLINICAL INFORMATION: Abd and bilateral flank pain. TECHNIQUE: Axial CT images were obtained through the abdomen and pelvis after IV contrast. All CT scans at this location are performed using CT dose reduction for ALARA by means of automated exposure control. COMPARISON: CTA chest from 01/09/2018. FINDINGS: LOWER CHEST: Sub-4 mm right lower lobe nodule is stable dating back to 2018, compatible with benign etiology. There is bibasilar volume loss. Lung bases are clear consolidation. LIVER: No significant abnormality GALLBLADDER/BILIARY TREE: No significant abnormality PANCREAS: No significant abnormality SPLEEN: No significant abnormality ADRENALS: No significant abnormality KIDNEYS / URETER: No significant abnormality URINARY BLADDER: No significant abnormality REPRODUCTIVE ORGANS: No significant abnormality STOMACH / BOWEL: No significant abnormality. Appendectomy. LYMPH NODES: No significant adenopathy. VASCULATURE: No significant abnormality. OTHER: No free air, free fluid, or focal fluid collection is identified. SKELETAL SYSTEM: Prominent disc bulge at L3-L4 with moderate to severe narrowing of the central canal. There is a right asymmetric disc bulge at L4-L5, which severely narrows of the right foramen. Central canal is mildly narrowed at L4-L 5. No acute fracture or malalignment. IMPRESSION: 1. No acute abnormality of the abdomen or pelvis. No evidence of bowel inflammation or obstruction. No urolithiasis or hydronephrosis. 2. Prominent disc bulges at L3-L4 and L4-L5. Moderate to severe narrowing of the central canal at L3-L4 and severe narrowing of the right foramen at L4-L5 due to right asymmetric disc bulge. 3. Other chronic and incidental findings as above. - Medical Decision Making This patient was initially sent in from the office of his primary care to rule out diabetic ketoacidosis due to some recent history of hyperglycemia/uncontrolled diabetes mellitus. The patient does have a blood sugar of about 400. There is no significant venous acidosis or elevation in the anion gap and the patient does not appear in diabetic ketoacidosis. She was given IV fluid resuscitation and a dose of IV insulin and her blood sugars come down to about 250. The patient complained that she has some chronic but intense abdominal pain with radiation to the bilateral flank. There is reproducible abdominal tenderness to palpation. A CT scan of the abdomen and pelvis with IV contrast was performed and it did not show any acute process or etiology of the patient's discomfort. When I went in to speak to the patient regarding the lab and imaging results thus far she looks uncomfortable, was holding onto her chest, and had tachycardia and tachypnea. An EKG was ordered and performed that did not show any evidence of ST elevation myocardial infarction and does show some Q waves in the anteroseptal leads. First troponin was negative. Chest x- ray does not show any pneumonia, pleural effusions, pneumothorax, widened mediastinum, or any other acute process. Patient will be admitted to the hospital for further evaluation and treatment of her chest discomfort and better glycemic control. It will be presented to the nighttime hospitalist for admission. Critical Care Time: No Critical care attestation.: If time is entered above; I have spent that time in minutes in the direct care of this critically ill patient, excluding procedure time. ED Disposition Clinical Impression: Acute chest pain, Uncontrolled diabetes mellitus, Hypertension, Abdominal pain Disposition: ADMITTED INPATIENT Is pt being admited?: Yes Condition: Serious Time of Disposition: 20:10 Heart Score - HEART Score History: Slightly suspicious EKG: Non-specific Age: 45-65 Risk factors: 1-2 risk factors Troponin: < normal limit HEART Score: 3 - EKG Read Time Time EKG Completed: 19:20 EKG Read Time: 19:22
[2021-05-24] MEDS ORDERED: INSULIN REGULAR, HUMAN 100 UNITS/1 ML IV ONE (15:58)
--- NOTE | 2021-05-24 17:28 | Cat Scan Report ---
CT abdomen pelvis w con INDICATION / CLINICAL INFORMATION: Abd and bilateral flank pain. TECHNIQUE: Axial CT images were obtained through the abdomen and pelvis after IV contrast. All CT sc ans at this location are performed using CT dose reduction for ALARA by means of automated exposure c ontrol. COMPARISON: CTA chest from 01/09/2018. FINDINGS: LOWER CHEST: Sub-4 mm right lower lobe nodule is stable dating back to 2018, compatible with benign e tiology. There is bibasilar volume loss. Lung bases are clear consolidation. LIVER: No significant abnormality GALLBLADDER/BILIARY TREE: No significant abnormality PANCREAS: No significant abnormality SPLEEN: No significant abnormality ADRENALS: No significant abnormality KIDNEYS / URETER: No significant abnormality URINARY BLADDER: No significant abnormality REPRODUCTIVE ORGANS: No significant abnormality STOMACH / BOWEL: No significant abnormality. Appendectomy. LYMPH NODES: No significant adenopathy. VASCULATURE: No significant abnormality. OTHER: No free air, free fluid, or focal fluid collection is identified. SKELETAL SYSTEM: Prominent disc bulge at L3-L4 with moderate to severe narrowing of the central canal . There is a right asymmetric disc bulge at L4-L5, which severely narrows of the right foramen. Centr al canal is mildly narrowed at L4-L5. No acute fracture or malalignment. IMPRESSION: 1. No acute abnormality of the abdomen or pelvis. No evidence of bowel inflammation or obstruction. N o urolithiasis or hydronephrosis. 2. Prominent disc bulges at L3-L4 and L4-L5. Moderate to severe narrowing of the central canal at L3- L4 and severe narrowing of the right foramen at L4-L5 due to right asymmetric disc bulge. 3. Other chronic and incidental findings as above. Signer Name: Jose Garcia MD Signed: 05/24/2021 5:23 PM Workstation Name: [id number]
[2021-05-24] MEDS ORDERED: HYDROmorphone 1 MG/1 ML INJ IV ONE (17:49)
[2021-05-24] MEDS ORDERED: SODIUM CHLORIDE 0.9% 500 ML 500 ML IV ONE (17:49)
--- NOTE | 2021-05-24 20:06 | XRay Report ---
CHEST 1 VIEW 05/24/2021 6:35 PM INDICATION / CLINICAL INFORMATION: Chest pain. COMPARISON: Left rib series from 01/23/2019 FINDINGS: SUPPORT DEVICES: None. HEART / MEDIASTINUM: No significant abnormality. LUNGS / PLEURA: No significant pulmonary abnormality. No significant pleural effusion. No pneumothora x. ADDITIONAL FINDINGS: No significant additional findings. IMPRESSION: 1. No acute abnormality of the chest. No significant interval change. Signer Name: Carlos Villagran MD Signed: 05/24/2021 8:02 PM Workstation Name: [id number]
[2021-05-24 20:27] LABS: Bilirubin,Urine NEG (Negative); Blood,Urine NEG (Negative); Color,Urine Straw (Yellow); Protein,Urine <15 mg/dL mg/dL (Negative); Urobilinogen,Urine < 2.0 mg/dL (<2.0); WBC,Urine < 1.0 /HPF (0.0-6.0)
[2021-05-24] MEDS ORDERED: ACETAMINOPHEN 325 MG TAB PO PRN (22:03)
[2021-05-24] MEDS ORDERED: HYDROmorphone 1 MG/1 ML INJ IV PRN (22:03)
[2021-05-24] MEDS ORDERED: DEXTROSE 50% IN WATER (25GM) 50 ML SYRINGE IV PRN (22:03)
[2021-05-24] MEDS ORDERED: MORPHINE 4 MG/1 ML INJ IV PRN (22:03)
[2021-05-24] MEDS ORDERED: traMADol 50 MG TAB PO PRN (22:03)
[2021-05-24] MEDS ORDERED: NITROGLYCERIN 0.4 MG TAB SUBL SL PRN (22:03)
[2021-05-24] MEDS ORDERED: BENZONATATE 100 MG CAP PO PRN (22:05)
[2021-05-24] MEDS ORDERED: CYCLOBENZAPRINE 10 MG TAB PO PRN (22:05)
--- NOTE | 2021-05-24 22:11 | History and Physical Report ---
History of Present Illness Date of examination: 05/24/21 Date of admission: 05/24/21 21:38 Chief complaint: Hyperglycemia Chest pain History of present illness: 55-year-old female with history of diabetes was brought to the emergency room because of uncontrolled diabetes despite compliance with her insulin and abdominal and bilateral flank pain. Patient says that the abdominal and flank pain has been going on since about February. The hyperglycemia has been going on for "a while." The patient says that she takes Humulin U 500 insulin 6 times per day and has been compliant with her medication. The abdominal and flank pain is described as a 10 out of 10 in intensity. She has some associated hematuria, mild dysuria, and says that her urine appears very concentrated with "bubbles." She denies any fever, nausea, vomiting, vaginal bleeding or discharge, chest pain, shortness of breath. She was sent in by the nurse practitioner for Dr. Daniel Smith with a note to evaluate for ketoacidosis. The patient complained of chronic but intense abdominal pain with radiation to the bilateral flank. There is reproducible abdominal tenderness to palpation. A CT scan of the abdomen and pelvis with IV contrast was performed and it did not show any acute process or etiology of the patient's discomfort. When emergency room physician talked to patient regarding the lab and imaging results thus far she looks uncomfortable, was holding onto her chest, and had tachycardia and tachypnea. An EKG was ordered and performed that did not show any evidence of ST elevation myocardial infarction and does show some Q waves in the anteroseptal leads. First troponin was negative. Chest x-ray does not show any pneumonia, pleural effusions, pneumothorax, widened mediastinum, or any other acute process. Patient will be admitted to the hospital for further e valuation of chest pain. Med rec is done Past History Past Medical History: diabetes, DVT, pulmonary embolism (MVP. GLAUCOMA. GOUT. ANXIETY) Medications and Allergies Allergies Allergy/AdvReac Type Severity Reaction Status Date / Time No Known Allergies Allergy Verified 01/31/17 02:19 Home Medications Medication Instructions Recorded Confirmed Last Taken Type Metoprolol [Lopressor TAB] 25 mg PO BID 09/02/13 01/09/18 09/05/15 History levETIRAcetam [Keppra TAB] 1,500 mg PO BID 09/02/13 01/09/18 09/05/15 History Aspirin 81 mg PO QDAY 09/06/15 01/09/18 09/05/15 History Gabapentin 300 mg PO DAILY 09/06/15 01/09/18 09/05/15 History Insulin Lispro [HumaLOG VIAL] 25 units SQ AC 09/06/15 01/09/18 09/05/15 History Levothyroxine [Synthroid] 112 mcg PO QAM 09/06/15 01/09/18 09/05/15 History Omeprazole [PriLOSEC] 40 mg PO QDAY 09/06/15 01/09/18 09/05/15 History PARoxetine [Paxil] 30 mg PO DAILY 09/06/15 01/09/18 09/05/15 History Simvastatin (NF) [Zocor TAB] 40 mg PO QHS 09/06/15 01/09/18 09/05/15 History Benzonatate [Tessalon Perles] 100 mg PO Q8HR PRN #20 capsule 09/07/15 01/09/18 Unknown Rx Insulin Degludec (Nf) [Tresiba 90 unit SQ DAILY 07/07/16 01/09/18 Unknown History Flextouch U-100 (Nf)] Olmesartan/Hydrochlorothiazide 1 tab PO QDAY 07/07/16 01/09/18 Unknown History [Benicar HCT 40-25 mg] Symbicort 160-4.5 (Nf) 160 spray IH DAILY 07/07/16 01/09/18 Unknown History Cyclobenzaprine [Flexeril] 10 mg PO QHS PRN #10 tablet 01/23/19 Unknown Rx Naproxen [EC-Naprosyn] 500 mg PO BID PRN #20 tablet. 01/23/19 Unknown Rx Review of Systems All systems: negative Cardiovascular: chest pain Gastrointestinal: abdominal pain Exam - Constitutional Vitals: Temp Pulse Resp BP Pulse Ox 97.7 F 90 12 147/69 96 05/24/21 18:38 05/24/21 17:01 05/24/21 17:01 05/24/21 16:31 05/24/21 17:58 General appearance: Present: no acute distress, well-nourished - EENT Eyes: Present: PERRL ENT: hearing intact, clear oral mucosa - Neck Neck: Present: supple, normal ROM - Respiratory Respiratory effort: normal Respiratory: bilateral: diminished - Cardiovascular Heart Sounds: Present: S1 & S2. Absent: rub, click - Extremities Extremities: pulses symmetrical, No edema Peripheral Pulses: within normal limits - Abdominal General gastrointestinal: Present: soft, non-tender, non-distended, normal bowel sounds Female genitourinary: Present: normal - Integumentary Integumentary: Present: clear, warm, dry - Musculoskeletal Musculoskeletal: gait normal, strength equal bilaterally - Psychiatric Psychiatric: appropriate mood/affect, intact judgment & insight - Neurologic Neurologic: CNII-XII intact, moves all extremities HEART Score - HEART Score EKG: Non-specific Age: 45-65 Risk factors: 1-2 risk factors Troponin: Troponin T < 0.010 ng/mL (0.00-0.029) 05/24/21 19:08 Results - Labs CBC & Chem 7: 05/24/21 15:11 05/24/21 15:11 Labs: Laboratory Last Values WBC 4.5 K/mm3 (4.5-11.0) 05/24/21 15:11 RBC 4.34 M/mm3 (3.65-5.03) 05/24/21 15:11 Hgb 12.5 gm/dl (10.1-14.3) 05/24/21 15:11 Hct 38.4 % (30.3-42.9) 05/24/21 15:11 MCV 89 fl (79-97) 05/24/21 15:11 MCH 29 pg (28-32) 05/24/21 15:11 MCHC 33 % (30-34) 05/24/21 15:11 RDW 12.8 % (13.2-15.2) L 05/24/21 15:11 Plt Count 251 K/mm3 (140-440) 05/24/21 15:11 Lymph % (Auto) 35.6 % (13.4-35.0) H 05/24/21 15:11 [place] % (Auto) 8.4 % (0.0-7.3) H 05/24/21 15:11 Eos % (Auto) 1.0 % (0.0-4.3) 05/24/21 15:11 Baso % (Auto) 0.5 % (0.0-1.8) 05/24/21 15:11 Lymph # (Auto) 1.6 K/mm3 (1.2-5.4) 05/24/21 15:11 [place] # (Auto) 0.4 K/mm3 (0.0-0.8) 05/24/21 15:11 Eos # (Auto) 0.0 K/mm3 (0.0-0.4) 05/24/21 15:11 Baso # (Auto) 0.0 K/mm3 (0.0-0.1) 05/24/21 15:11 Seg Neutrophils % 54.5 % (40.0-70.0) 05/24/21 15:11 Seg Neutrophils # 2.4 K/mm3 (1.8-7.7) 05/24/21 15:11 VBG pH 7.381 (7.320-7.420) 05/24/21 15:24 Sodium 134 mmol/L (137-145) L 05/24/21 15:11 Potassium 4.2 mmol/L (3.6-5.0) 05/24/21 15:11 Chloride 97.8 mmol/L (98-107) L 05/24/21 15:11 Carbon Dioxide 20 mmol/L (22-30) L 05/24/21 15:11 Anion Gap 20 mmol/L 05/24/21 15:11 BUN 13 mg/dL (7-17) 05/24/21 15:11 Creatinine 0.6 mg/dL (0.6-1.2) 05/24/21 15:11 Estimated GFR > 60 ml/min 05/24/21 15:11 BUN/Creatinine Ratio 22 % 05/24/21 15:11 Glucose 402 mg/dL (65-100) H 05/24/21 15:11 POC Glucose 256 mg/dL (70-105) H 05/24/21 18:35 Ketones Quantitative Small (Negative) 05/24/21 15:11 Calcium 9.6 mg/dL (8.4-10.2) 05/24/21 15:11 Total Bilirubin 0.50 mg/dL (0.1-1.2) 05/24/21 15:11 AST 19 units/L (5-40) 05/24/21 15:11 ALT 18 units/L (7-56) 05/24/21 15:11 Alkaline Phosphatase 117 units/L (35-129) 05/24/21 15:11 Troponin T < 0.010 ng/mL (0.00-0.029) 05/24/21 19:08 Total Protein 7.9 g/dL (6.3-8.2) 05/24/21 15:11 Albumin 4.3 g/dL (3.9-5) 05/24/21 15:11 Albumin/Globulin Ratio 1.2 % 05/24/21 15:11 Urine Color Straw (Yellow) 05/24/21 Unknown Urine Turbidity Clear (Clear) 05/24/21 Unknown Urine pH 5.0 (5.0-7.0) 05/24/21 Unknown Ur Specific [place] 1.045 (1.003-1.030) H 05/24/21 Unknown Urine Protein <15 mg/dl mg/dL (Negative) 05/24/21 Unknown Urine Glucose (UA) >=500 mg/dL (Negative) 05/24/21 Unknown Urine Ketones 20 mg/dL (Negative) 05/24/21 Unknown Urine Blood Neg (Negative) 05/24/21 Unknown Urine Nitrite Neg (Negative) 05/24/21 Unknown Urine Bilirubin Neg (Negative) 05/24/21 Unknown Urine Urobilinogen < 2.0 mg/dL (<2.0) 05/24/21 Unknown Ur Leukocyte Esterase Neg (Negative) 05/24/21 Unknown Urine WBC (Auto) < 1.0 /HPF (0.0-6.0) 05/24/21 Unknown Urine RBC (Auto) 1.0 /HPF (0.0-6.0) 05/24/21 Unknown - Imaging and Cardiology EKG: report reviewed Chest x-ray: report reviewed CT scan - abdomen: report reviewed Assessment and Plan VTE prophylaxis?: Chemical Plan of care discussed with patient/family: Yes - Patient Problems (1) Acute coronary syndrome Current Visit: Yes Status: Acute Plan to address problem: Admit the patient to the medical telemetry. Aspirin 325 mg p.o. daily. Lipitor 40 mg p.o. daily. Nitroglycerin as needed. Serial cardiac enzymes. Echocardiogram. Consult cardiology if needed (2) Abdominal pain Current Visit: Yes Status: Acute Plan to address problem: Protonix 40 mg p.o. daily. Zofran 4 million IV every 6 hours as needed. Morphine 2 mg IV every 4 hours as needed (3) Uncontrolled diabetes mellitus Current Visit: Yes Status: Acute Plan to address problem: 1800 kcal ADA diet. Humalog sliding scale with moderate dose coverage. Diabetic education. We will continue the home medication (4) Hypertension Current Visit: Yes Status: Chronic Plan to address problem: Benicar/HCTZ 40-25 mg p.o. daily. Metoprolol 25 mg p.o. twice daily. We will monitor the blood pressure closely (5) Hypothyroidism Current Visit: No Status: Acute Qualifiers: Hypothyroidism type: acquired Qualified Code(s): E03.9 - Hypothyroidism, unspecified Plan to address problem: Patient is on Synthroid 1 1 2 mcg p.o. every morning. Outpatient follow-up with sole rougher (6) Seizure disorder Onset Date: 08/15/14 Current Visit: No Status: Chronic Plan to address problem: Stable. We will continue Keppra 1500 mg p.o. twice daily and Paxil 30 mg p.o. daily (7) DVT prophylaxis Current Visit: Yes Status: Acute Plan to address problem: Heparin 5000 units subcu every 8 hours for DVT prophylaxis. Protonix 40 mg p.o. daily for GI prophylaxis. Patient is a full code
[2021-05-24] MEDS ORDERED: SODIUM CHLORIDE 0.9% 1000 ML 1,000 ML IV SCH (22:15)
[2021-05-24 23:24] LABS: Basophils % (Auto) 0.3 % (0.0-1.8); Hematocrit 37.8 % (30.3-42.9); Lymphocytes # (Auto) 0.7 K/mm3 (1.2-5.4); Lymphocytes % (Auto) 9.1 % (13.4-35.0); Mean Corpuscular HGB Conc 32 % (30-34); Mean Corpuscular Volume 90 fl (79-97); Monocytes # (Auto) 0.4 K/mm3 (0.0-0.8); Monocytes % (Auto) 4.6 % (0.0-7.3); Platelet Count 253 K/mm3 (140-440); Red Blood Count 4.21 M/mm3 (3.65-5.03); Red Cell Distribution Width 12.9 % (13.2-15.2)
[2021-05-24 23:40] LABS: Blood Urea Nitrogen 10 mg/dL (7-17); Hemolysis Index 8
[2021-05-24 23:41] LABS: BUN/Creatinine Ratio 14
[2021-05-25] MEDS: INSULIN LISPRO 100 UNIT/ML SUB-Q SCH ×3 (00:30→12:32)
[2021-05-25] MEDS ORDERED: LEVOTHYROXINE 112 MCG TAB PO SCH (06:00)
[2021-05-25] MEDS: HEPARIN 5,000 UNIT/1 ML VIAL SUB-Q SCH ×2 (06:24→13:37)
[2021-05-25 08:44] VITALS: BP 133/63
[2021-05-25] MEDS ORDERED: INSULIN NPH/REGULAR 70/30 INJ SUB-Q SCH (09:00)
[2021-05-25] MEDS ORDERED: ASPIRIN 81 MG TAB CHEW PO SCH (10:00)
[2021-05-25] MEDS ORDERED: [UNRECOGNIZED DRUG - OTHER] PO SCH (10:00)
[2021-05-25] MEDS ORDERED: OLMESARTAN PO SCH (10:00)
[2021-05-25] MEDS ORDERED: hydroCHLOROthiazide 25 MG TAB PO SCH (10:00)
[2021-05-25] MEDS ORDERED: METOPROLOL TARTRATE 25 MG TAB PO SCH (10:00)
[2021-05-25] MEDS ORDERED: PARoxetine 20 MG TAB PO SCH (10:00)
[2021-05-25] MEDS ORDERED: HYDROCHLOROTHIAZIDE PO SCH (10:00)
[2021-05-25] MEDS ORDERED: GABAPENTIN 300 MG CAP PO SCH ×3 (10:00→12:25)
[2021-05-25] MEDS ORDERED: levETIRAcetam 500 MG TAB PO SCH ×2 (10:00→12:25)
[2021-05-25] MEDS ORDERED: PANTOPRAZOLE 40 MG TAB PO SCH (10:00)
[2021-05-25] MEDS ORDERED: ASPIRIN 325 MG TAB PO SCH (10:00)
[2021-05-25] MEDS ORDERED: NON-FORMULARY EACH (Levetiracetam [Keppra Tab] 750 MG Tablet) PO SCH (10:00)
[2021-05-25] MEDS ORDERED: LOSARTAN 50 MG TAB PO SCH (10:00)
[2021-05-25 11:37] LABS: Hematocrit 37.6 % (30.3-42.9); Hemoglobin 12.1 gm/dl (10.1-14.3); Mean Corpuscular HGB Conc 32 % (30-34); Mean Corpuscular Volume 89 fl (79-97); Platelet Count 263 K/mm3 (140-440); Red Cell Distribution Width 13.3 % (13.2-15.2)
[2021-05-25 12:08] LABS: Blood Urea Nitrogen 8 mg/dL (7-17); Calcium 8.9 mg/dL (8.4-10.2); Hemolysis Index 1
[2021-05-25 12:22] LABS: BUN/Creatinine Ratio 13
--- NOTE | 2021-05-25 13:17 | Discharge Summary ---
Providers - Providers Date of Admission: 05/24/21 21:38 Date of discharge: 05/25/21 Attending physician: KENDALL DOW MD 05/24/21 Consult to Cardiac Rehabilitation [CONS] Routine Reason For Exam: Phase I 05/24/21 22:03 Consult to Dietitian/Nutrition [CONS] Routine Physician Instructions: Reason For Exam: Reason for Consult: Diet education Primary care physician: SURGICAL ORDERLY Hospitalization Reason for admission: Acute coronary syndrome Condition: Serious Pertinent studies: Reviewed. Procedures: TTE Hospital course: Patient is a 55-year-old female past medical history of insulin-dependent type 2 diabetes mellitus complicated by diabetic neuropathy, hypertension, hyperlipidemia, seizure disorder, hypothyroidism, anxiety who presented for hyperglycemia and diffuse pain (bilateral lumbar, bilateral hands, and bilateral feet). The patient was evaluated in found to have a negative urinalysis, negative troponin x2, and electrolytes within normal limits. CT abdomen/pelvis with contrast was negative for any acute abnormality, and the patient denied any trauma or falls related to her back pain. The patient underwent a TTE revealing an normal LV function and an EF of 55-60% and RSVP of 22 mmHg. The patient was counseled at length about the high likelihood of diabetic neuropathy given her symptoms and longstanding history of uncontrolled diabetes. Patient was counseled about weight loss, medication compliance, dietary changes, and incorporating exercise. The patient was counseled about how diabetic neuropathy cannot be reversed but symptoms can be treated with gabapentin. The patient expressed understanding, and the patient will be discharged home. Disposition: 01 HOME / SELF CARE / HOMELESS Final Discharge Diagnosis (Prints w/discharge instructions): insulin-dependent type 2 diabetes mellitus complicated by diabetic neuropathy, hypertension, hyperlipidemia, seizure disorder, hypothyroidism, anxiety Time spent for discharge: 90 min Core Measure Documentation - Palliative Care Palliative Care/ Comfort Measures: Not Applicable - Core Measures Any of the following diagnoses?: history only - VTE Discharge Requirements Deep Vein Thrombosis/Pulmonary Embolism Present on Admission: No Has pt received <5 days of overlap therapy or INR<2.0: No (Not indicated) Anticoagulant overlap therapy prescribed at discharge: No Contraindication No Overlap Therapy order at DC: Not Indicated - Acute CA Discharge Requirements Aspirin at discharge: Yes RADHA/ARB for LVSD if EF <40%: Yes Beta vance at discharge: Yes Statin for LDL = or >100 mg/dl on DC: Yes - Heart Failure Discharge Requirements RADHA/ARB for LVSD if EF <40%: Yes Beta vance at discharge: Yes - Stroke Discharge Requirements Statin for LDL = or >70 mg/dl on DC: Yes Anticoag for atrial fib/atrial flutter: Not Applicable Reason for no anticoag for AF/F on DC: Not Indicated Antithrombotic for ischemic stroke: No Reason for no antithrombotic on DC: Not Indicated Exam - Constitutional Vitals: Temp Pulse Resp BP Pulse Ox 98.3 F 92 H 20 133/63 98 05/25/21 08:42 05/25/21 08:42 05/25/21 08:42 05/25/21 08:42 05/25/21 08:42 General appearance: Present: mild distress, well-nourished - EENT Eyes: Present: PERRL, EOM intact ENT: hearing intact, clear oral mucosa, dentition normal - Neck Neck: Present: supple, normal ROM - Respiratory Respiratory effort: normal Respiratory: bilateral: CTA - Cardiovascular Rhythm: regular Heart Sounds: Present: S1 & S2 - Extremities Extremities: no ischemia, pulses intact, pulses symmetrical, No edema, normal temperature, normal color, Full ROM Peripheral Pulses: within normal limits - Abdominal General gastrointestinal: Present: soft, non-tender, non-distended Female genitourinary: Present: deferred - Rectal Rectal Exam: deferred - Integumentary Integumentary: Present: clear, warm, dry - Musculoskeletal Musculoskeletal: strength equal bilaterally, other (Bilateral lower lumbar pain) - Psychiatric Psychiatric: appropriate mood/affect, intact judgment & insight, memory intact, cooperative, depressed, other (Anxious) - Neurologic Neurologic: CNII-XII intact, moves all extremities - Allied Health Allied health notes reviewed: nursing Plan Activity: no restrictions Diet: low salt, diabetic, per dietitian instruction Care Plan Goals: Patient discharging home safely with family. Assessment: Patient was admitted for acute coronary syndrome work-up, but was found to have negative troponins x2. The patient had a TTE that revealed normal LV function and an EF of 55 to 60%. Further conversation with the patient revealed that the likely cause of pain is secondary to diabetic neuropathy given the progressive timeline of symptoms and 30+ years of uncontrolled type 2 diabetes mellitus. Patient is being discharged safely with PCP referral. Follow up with: DARIUS CARRINGTON MD [Primary Care Provider] - 7 Days JAGRUTI HALL MD [Staff Physician] - 10 Days
--- NOTE | 2021-05-25 13:26 | Electrocardiograph Report ---
[facility] Test Date: 2021-05-24 Test Time: 19:05:48 Pat Name: ARNAV SEPULVEDA Department: Room: A472 1 Gender: F Electrical Repairer: YVETTE : 1965 Requested By: ALAN NIX Order Number: [id number] Reading MD: Daniel Bond Measurements Intervals [place] Rate: 113 P: 48 IA: 197 QRS: 4 QRSD: 71 T: 171 QT: 312 QTc: 428 Interpretive Statements Sinus tachycardia Borderline prolonged IA interval LAE, consider biatrial enlargement Probable anterior infarct, old No previous ECG available for comparison Electronically Signed On 05-25-2021 13:26:17 EST by Daniel Bond
--- NOTE | 2021-05-25 13:27 | Electrocardiograph Report ---
[facility] Test Date: 2021-05-25 Test Time: 10:42:03 Pat Name: ARNAV SEPULVEDA Department: Room: A472 1 Gender: F Chief Cook: SOUMYA : 1965 Requested By: AVILA HARDY Order Number: [id number] Reading MD: Daniel Bond Measurements Intervals [place] Rate: 90 P: 68 ME: 199 QRS: 13 QRSD: 85 T: -87 QT: 440 QTc: 537 Interpretive Statements Sinus rhythm Nonspecific T abnormalities, diffuse leads Prolonged QT interval Compared to ECG 05/25/2021 07:03:52 Prolonged QT interval now present First degree AV block no longer present T-wave abnormality still present Electronically Signed On 05-25-2021 13:26:58 EST by Daniel Bond
--- NOTE | 2021-05-25 13:27 | Electrocardiograph Report ---
[facility] Test Date: 2021-05-25 Test Time: 07:03:52 Pat Name: ARNAV SEPULVEDA Department: Room: A472 1 Gender: F Installer Soft Top: SOUMYA : 1965 Requested By: AVILA HARDY Order Number: [id number] Reading MD: Daniel Bond Measurements Intervals [place] Rate: 96 P: 65 MS: 207 QRS: 13 QRSD: 90 T: 248 QT: 349 QTc: 440 Interpretive Statements Sinus rhythm Prolonged MS interval Probable left atrial enlargement Nonspecific T abnormalities, diffuse leads No previous ECG available for comparison Electronically Signed On 05-25-2021 13:26:55 EST by Daniel Bond
== END 2021-05-25 15:08 | disposition home or self-care (01) ==
LOC: ED 14:28 → 4A 21:38
PROVIDERS: ADMIT Hospitalist; ATTEND Student in an Organized Health Care Education/Training Program
DX: I24.9 Acute ischemic heart disease, unspecified (principal); E11.65 Type 2 diabetes mellitus with hyperglycemia; I10 Essential (primary) hypertension; E03.9 Hypothyroidism, unspecified; E11.40 Type 2 diabetes mellitus with diabetic neuropathy, unspecified; G40.909 Epilepsy, unspecified, not intractable, without status epilepticus; J45.909 Unspecified asthma, uncomplicated; E78.5 Hyperlipidemia, unspecified; R10.9 Unspecified abdominal pain; H40.9 Unspecified glaucoma; F41.9 Anxiety disorder, unspecified; Z86.711 Personal history of pulmonary embolism; Z86.718 Personal history of other venous thrombosis and embolism; Z79.82 Long term (current) use of aspirin; Z79.4 Long term (current) use of insulin
CPT/HCPCS: 36415; 71045; 74177; 80048; 80053; 81001; 82010; 82805; 82962; 84484; 85025; 85027; 93005; 93306; 96361; 96372; 96374; 96375; 99285; G0378; J1170; J1644; J2270; J2405; J7030; J7040; Q9967; Q0162; Q0177; J1815